=== PATIENT | male | born 1935 | race Hispanic/Latino ===

== ENCOUNTER 2016-08-29 09:15 | Outpatient (CLI) | payer MEDICARE ==
[2016-08-29 09:59] LABS: Hematocrit 32.1 % (35.5-45.6); Hemoglobin 10.6 gm/dl (11.8-15.2); Mean Corpuscular HGB Conc 33 % (32-34); Mean Corpuscular Hemoglobin 31 pg (28-32); Mean Corpuscular Volume 94 fl (84-94); Platelet Count 205 K/mm3 (140-440); Red Blood Count 3.43 M/mm3 (3.65-5.03); Red Cell Distribution Width 15.6 % (13.2-15.2); White Blood Count 7.6 K/mm3 (4.5-11.0)
[2016-08-29 10:12] LABS: Albumin 3.7 g/dL (3.9-5); Bilirubin,Total 0.3 mg/dL (0.1-1.2); Calcium 8.9 mg/dL (8.4-10.2); Chloride 103.2 mmol/L (98-107); Potassium 5.6 mmol/L (3.6-5.0); Total Protein 7.5 g/dL (6.3-8.2)
== END 2016-08-29 09:16 | disposition home or self-care (01) ==
LOC: LAB 09:15
DX: J44.9 Chronic obstructive pulmonary disease, unspecified (principal); R94.4 Abnormal results of kidney function studies; D63.1 Anemia in chronic kidney disease; E87.5 Hyperkalemia; E88.09 Other disorders of plasma-protein metabolism, not elsewhere classified; R82.99 Other abnormal findings in urine
CPT/HCPCS: 36415; 80053; 83970; 85027

== ENCOUNTER 2016-09-10 11:13 | Outpatient (CLI) | payer MEDICARE ==
[2016-09-10 11:44] LABS: BUN/Creatinine Ratio 16.5; Chloride 104.6 mmol/L (98-107); Potassium 5.1 mmol/L (3.6-5.0)
== END 2016-09-10 11:14 | disposition home or self-care (01) ==
LOC: LAB 11:13
PROVIDERS: ATTEND Internal Medicine Nephrology
DX: I12.9 Hypertensive chronic kidney disease with stage 1 through stage 4 chronic kidney disease, or unspecified chronic kidney disease (principal); N18.3 Chronic kidney disease, stage 3 (moderate); D63.1 Anemia in chronic kidney disease; N25.81 Secondary hyperparathyroidism of renal origin; E87.5 Hyperkalemia; R80.9 Proteinuria, unspecified; E55.9 Vitamin D deficiency, unspecified; R60.9 Edema, unspecified
CPT/HCPCS: 36415; 80048

== ENCOUNTER 2016-12-18 10:48 | Outpatient (CLI) | payer MEDICARE ==
[2016-12-18 11:32] LABS: Calcium 8.8 mg/dL (8.4-10.2); Chloride 105.1 mmol/L (98-107); Potassium 4.4 mmol/L (3.6-5.0)
[2016-12-18] MEDS ORDERED: NACL ONE (11:47)
--- NOTE | 2016-12-18 13:36 | Cat Scan Report ---
CT CHEST WITH CONTRAST: HISTORY: Lung mass. TECHNIQUE: Helical CT following IV contrast. Sagittal and coronal reformatted images. FINDINGS: Moderate emphysematous changes are present bilaterally. There are multiple blebs and bulla in the anterior upper lobes. A spiculated mass in the right lower lobe measures 3.3 x 2.2 cm. No evidence for infiltrate, pleural effusion or pneumothorax. Heart and mediastinal structures are within normal limits. No thoracic adenopathy is detected. The bony structures are intact. No fracture or suspicious bony lesion. IMPRESSION: Emphysematous changes. Suspicious right lower lobe mass measuring 3.3 x 3.2 cm. Primary lung neoplasm cannot be excluded. This lesion should be accessible for CT-guided biopsy is needed.
== END 2016-12-18 10:49 | disposition home or self-care (01) ==
LOC: CT 10:48
PROVIDERS: ATTEND Internal Medicine
DX: R91.8 Other nonspecific abnormal finding of lung field (principal)
CPT/HCPCS: 36415; 71260; 80048; Q9967

== ENCOUNTER 2017-01-06 09:27 | Outpatient (CLI) | payer MEDICARE ==
[2017-01-06 09:53] LABS: Hematocrit 29.9 % (35.5-45.6); Hemoglobin 10.1 gm/dl (11.8-15.2)
[2017-01-06 10:17] LABS: Albumin 3.6 g/dL (3.9-5); BUN/Creatinine Ratio 15.29; Calcium 8.8 mg/dL (8.4-10.2); Chloride 101.9 mmol/L (98-107); Phosphorous 2.5 mg/dL (2.5-4.5); Potassium 4.5 mmol/L (3.6-5.0)
== END 2017-01-06 09:28 | disposition home or self-care (01) ==
LOC: LAB 09:27
PROVIDERS: ATTEND Internal Medicine Nephrology
DX: N18.3 Chronic kidney disease, stage 3 (moderate) (principal); I12.9 Hypertensive chronic kidney disease with stage 1 through stage 4 chronic kidney disease, or unspecified chronic kidney disease; N25.81 Secondary hyperparathyroidism of renal origin; E44.0 Moderate protein-calorie malnutrition; E55.9 Vitamin D deficiency, unspecified; R80.9 Proteinuria, unspecified; R31.9 Hematuria, unspecified; D63.1 Anemia in chronic kidney disease
CPT/HCPCS: 36415; 80048; 82040; 83970; 84100; 85014; 85018

== ENCOUNTER 2017-01-22 08:06 | Day surgery (SDC) | payer MEDICARE ==
[2017-01-22 09:34] LABS: Hematocrit 31.4 % (35.5-45.6); Hemoglobin 10.5 gm/dl (11.8-15.2); Mean Corpuscular HGB Conc 33 % (32-34); Mean Corpuscular Hemoglobin 31 pg (28-32); Mean Corpuscular Volume 93 fl (84-94); Platelet Count 219 K/mm3 (140-440); Red Blood Count 3.38 M/mm3 (3.65-5.03); Red Cell Distribution Width 15.5 % (13.2-15.2); White Blood Count 14.6 K/mm3 (4.5-11.0)
[2017-01-22 10:12] LABS: INR 1.08 (0.87-1.13)
[2017-01-22 11:12] LABS: Basophils % (Manual) 0 % (0.0-1.8); Blastocytes % (Manual) 0 %; Diff Status Complete; Eosinophils % (Manual) 0 % (0.0-4.3); RBC Morphology Normal
[2017-01-22] MEDS ORDERED: SUBLIMAZE ONE (11:46)
[2017-01-22] MEDS ORDERED: VERSED IV ONE ×2 (11:46→11:55)
[2017-01-22] MEDS ORDERED: SUBLIMAZE IV ONE (11:55)
--- NOTE | 2017-01-22 13:16 | Short Stay Summary ---
Short Stay Documentation Date of service: 01/22/17 - History Principal diagnosis: Lung mass - Allergies and Medications Current Medications: Allergies Sulfa (Sulfonamide Antibiotics) Allergy (Unverified 09/15/13 10:50) Itching Home Medications Medication Instructions Recorded Confirmed Last Taken Type Albuterol Sulfate [Ventolin HFA] 2 puff IH Q4H PRN 01/22/17 01/22/17 01/22/17 05 :00 History Calcitriol [Calcitriol] 0.25 mg PO DAILY 01/22/17 01/22/17 01/21/17 History Fluticasone/Salmeterol [Advair 1 puff IH BID 01/22/17 01/22/17 01/21/17 History Diskus 500-50 mcg] Furosemide [Furosemide] 40 mg PO Q48H 01/22/17 01/22/17 01/21/17 History Levothyroxine [Synthroid] 50 mcg PO QAM 01/22/17 01/22/17 01/21/17 History Omeprazole [Omeprazole] 40 mg PO QAM 01/22/17 01/22/17 01/21/17 History Tamsulosin HCl [Tamsulosin HCl] 0.4 mg PO DAILY 01/22/17 01/22/17 01/21/17 History Tiotropium [Spiriva] 18 mcg IH QDAY 01/22/17 01/22/17 01/21/17 History - Physical exam General appearance: no acute distress - Brief post op/procedure progress note Date of procedure: 01/22/17 Pre-op diagnosis: Lung mass Post-op diagnosis: same Anesthesia: local Surgeon: MARIANA DOMINIQUE Estimated blood loss: none Specimen disposition: to lab Condition: stable - Disposition Condition at discharge: Good Short Stay Discharge Plan Follow up with: VIANEY ANDREWS MD [Primary Care Provider] - 7 Days
--- NOTE | 2017-01-22 14:15 | Cat Scan Report ---
CT-guided biopsy of right lung mass. Procedure: The patient's skin surface overlying the right lateral thorax was prepped and draped using sterile technique. Local anesthetic was injected into the skin. Using CT guidance, a 19-gauge sheath needle was advanced into the soft tissue mass in the right lower lobe. 3 passes were made using 20-gauge biopsy gun. Adequate tissue was obtained and initial touch prep slides demonstrated malignant cells. Intravenous conscious sedation was used. Intra-service time was 30 minutes. Independent cardiorespiratory monitoring was performed by the outpatient procedure nurse for 30 minutes, supervised by me. The patient tolerated the procedure well clinically and was sent to the outpatient procedure unit for further observation and a followup expiratory chest x-ray.
[2017-01-22 14:53] VITALS: BP 134/46
--- NOTE | 2017-01-22 15:05 | XRay Report ---
AP expiratory chest x-ray. History: Status post biopsy of right lung mass. Findings: There is no evidence of pneumothorax status post biopsy of right lung mass. The mass in the right lower lobe is again noted. No acute findings are seen.
== END 2017-01-22 15:30 | disposition home or self-care (01) ==
LOC: OPU 08:06 → EDSTATUS 08:30 → OPU 15:30
PROVIDERS: ATTEND Internal Medicine
DX: C34.31 Malignant neoplasm of lower lobe, right bronchus or lung (principal); J44.9 Chronic obstructive pulmonary disease, unspecified; K21.9 Gastro-esophageal reflux disease without esophagitis; Z88.2 Allergy status to sulfonamides; Z79.01 Long term (current) use of anticoagulants
CPT/HCPCS: 32405; 36415; 71010; 77012; 85007; 85025; 85610; 88305; 88333; 88334; 88341; 88342; J2250; J3010

== ENCOUNTER 2017-06-03 09:51 | Outpatient (CLI) | payer MEDICARE ==
[2017-06-03 10:44] LABS: Albumin 3.2 g/dL (3.9-5); Calcium 8.8 mg/dL (8.4-10.2); Chloride 103.9 mmol/L (98-107); Phosphorous 3.2 mg/dL (2.5-4.5); Potassium 5.5 mmol/L (3.6-5.0); Uric Acid 8.6 mg/dL (3.5-7.6)
== END 2017-06-03 09:52 | disposition home or self-care (01) ==
LOC: LAB 09:51
PROVIDERS: ATTEND Internal Medicine Nephrology
DX: I12.9 Hypertensive chronic kidney disease with stage 1 through stage 4 chronic kidney disease, or unspecified chronic kidney disease (principal); N18.3 Chronic kidney disease, stage 3 (moderate); D63.1 Anemia in chronic kidney disease; N25.81 Secondary hyperparathyroidism of renal origin; E44.0 Moderate protein-calorie malnutrition; R60.9 Edema, unspecified; E55.9 Vitamin D deficiency, unspecified; R80.9 Proteinuria, unspecified; R31.9 Hematuria, unspecified
CPT/HCPCS: 36415; 80048; 82040; 82570; 83970; 84100; 84156; 84550

== ENCOUNTER 2017-06-20 12:54 | Inpatient (IN) | payer MEDICARE ==
[2017-06-20 13:42] LABS: Basophils % (Auto) 0.4 % (0.0-1.8); Hematocrit 28.6 % (35.5-45.6); Hemoglobin 9.5 gm/dl (11.8-15.2); Mean Corpuscular HGB Conc 33 % (32-34); Mean Corpuscular Hemoglobin 31 pg (28-32); Mean Corpuscular Volume 94 fl (84-94); Platelet Count 221 K/mm3 (140-440); Red Blood Count 3.03 M/mm3 (3.65-5.03); Red Cell Distribution Width 17.5 % (13.2-15.2); White Blood Count 6.5 K/mm3 (4.5-11.0)
[2017-06-20 13:52] LABS: INR 1.4 (0.87-1.13)
[2017-06-20 13:53] LABS: Partial Thromboplastin Time 40.5 Sec. (24.2-36.6)
[2017-06-20 14:05] LABS: Calcium 8.9 mg/dL (8.4-10.2); Chloride 103.6 mmol/L (98-107); Potassium 5.1 mmol/L (3.6-5.0)
--- NOTE | 2017-06-20 14:43 | XRay Report ---
FINAL REPORT PROCEDURE: XR CHEST ROUTINE 2V TECHNIQUE: PA and lateral views of the chest are submitted. HISTORY: Shortness of breath COMPARISON: None FINDINGS: The trachea is midline. The heart is normal in size. Right worse than left apical pleural thickening is present as well as increased interstitial markings suggestive of COPD. Asymmetrical opacity of the lateral right midlung 4.4 x 1.8 centimeters is present. There is no evident pneumothorax or pleural fluid. No acute osseous abnormality is present. IMPRESSION: 4.4 x 1.8 centimeter asymmetrical opacity within the lateral mid right lung possibly a scar. Spiculated mass is not excluded superimposed upon changes of COPD. Contrast-enhanced CT of the chest would be of benefit for further evaluation.
--- NOTE | 2017-06-20 16:07 | Emergency Department Report ---
ED General Adult HPI - General Chief complaint: Dyspnea/Respdistress Stated complaint: EDMUNDO Time Seen by Provider: 06/20/17 16:04 Source: patient, family Mode of arrival: Wheelchair Limitations: Physical Limitation - History of Present Illness Initial comments: The patient is report intermittent shortness of breath. The patient is on home O2. He states his shortness of breath is worse on exertion. He has been seen by his business analytics specialist was prescribed azithromycin. He went to his family physician's office who recommended an emergency department evaluation and possible hospitalization. The patient does not complain of chest pain pressure or tightness. He is on health class. 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 He is status post XRT for his stage IV lung cancer. He is not currently on chemotherapy. He reports no fever or chills. He has not been coughing. He has had sinus drainage. He does not complain of any acute diaphoresis nausea or vomiting. He's had no leg pain or swelling. He is compliant with his medications. -: week(s) Severity scale (0 -10): 0 Associated Symptoms: denies other symptoms - Related Data Home Medications Medication Instructions Recorded Confirmed Last Taken Albuterol Sulfate [Ventolin HFA] 2 puff IH Q4H PRN 01/22/17 06/20/17 06/20/17 Calcitriol [Calcitriol] 0.25 mg PO DAILY 01/22/17 06/20/17 06/19/17 Fluticasone/Salmeterol [Advair 1 puff IH BID 01/22/17 06/20/17 06/20/17 Diskus 500-50 mcg] Furosemide [Furosemide] 40 mg PO Q48H 01/22/17 06/20/17 06/19/17 Levothyroxine [Synthroid] 50 mcg PO QAM 01/22/17 06/20/17 06/20/17 Omeprazole [Omeprazole] 40 mg PO QAM 01/22/17 06/20/17 06/20/17 Tamsulosin HCl [Tamsulosin HCl] 0.4 mg PO DAILY 01/22/17 06/20/17 06/20/17 Tiotropium [Spiriva] 18 mcg IH QDAY 01/22/17 06/20/17 06/20/17 Apixaban [Eliquis] 5 mg PO BID 06/20/17 06/20/17 06/20/17 Clindamycin [Clindamycin CAP] 600 mg PO TID 06/20/17 06/20/17 06/20/17 Metoprolol [Lopressor] 12.5 mg PO BID 06/20/17 06/20/17 06/20/17 Allergies Allergy/AdvReac Type Severity Reaction Status Date / Time Sulfa (Sulfonamide Allergy Itching Unverified 09/15/13 10:50 Antibiotics) ED Review of Systems ROS: Stated complaint: EDMUNDO Other details as noted in HPI Constitutional: denies: chills, fever Eyes: denies: eye pain, eye discharge, vision change ENT: denies: ear pain, throat pain Respiratory: shortness of breath. denies: cough, wheezing Cardiovascular: denies: chest pain, palpitations Endocrine: no symptoms reported Gastrointestinal: denies: abdominal pain, nausea, diarrhea Genitourinary: denies: urgency, dysuria Musculoskeletal: denies: back pain, joint swelling, arthralgia Skin: denies: rash, lesions Neurological: denies: headache, weakness, paresthesias Psychiatric: denies: anxiety, depression Hematological/Lymphatic: denies: easy bleeding, easy bruising ED Past Medical Hx - Past Medical History Previous Medical History?: Yes Hx Hypertension: Yes Hx Heart Attack/AMI: No (no known coronary artery disease) Hx Diabetes: No Hx Pulmonary Embolism: Yes Hx GERD: Yes Hx Arthritis: Yes Hx COPD: Yes (3.5 liters Oxygen) Hx HIV: No Additional medical history: hypothyroidism,enlarged prostate - Surgical History Past Surgical History?: Yes Additional Surgical History: colon blockage 2007,colostomy reversal in 2008 - Social History Smoking Status: Former Smoker Substance Use Type: Prescribed - Medications Home Medications: Home Medications Medication Instructions Recorded Confirmed Last Taken Type Albuterol Sulfate [Ventolin HFA] 2 puff IH Q4H PRN 01/22/17 06/20/17 06/20/17 History Calcitriol [Calcitriol] 0.25 mg PO DAILY 01/22/17 06/20/17 06/19/17 History Fluticasone/Salmeterol [Advair 1 puff IH BID 01/22/17 06/20/17 06/20/17 History Diskus 500-50 mcg] Furosemide [Furosemide] 40 mg PO Q48H 01/22/17 06/20/17 06/19/17 History Levothyroxine [Synthroid] 50 mcg PO QAM 01/22/17 06/20/17 06/20/17 History Omeprazole [Omeprazole] 40 mg PO QAM 01/22/17 06/20/17 06/20/17 History Tamsulosin HCl [Tamsulosin HCl] 0.4 mg PO DAILY 01/22/17 06/20/17 06/20/17 History Tiotropium [Spiriva] 18 mcg IH QDAY 01/22/17 06/20/17 06/20/17 History Apixaban [Eliquis] 5 mg PO BID 06/20/17 06/20/17 06/20/17 History Clindamycin [Clindamycin CAP] 600 mg PO TID 06/20/17 06/20/17 06/20/17 History Metoprolol [Lopressor] 12.5 mg PO BID 06/20/17 06/20/17 06/20/17 History ED Physical Exam - General Limitations: Physical Limitation General appearance: cachectic (somewhat) - Head Head exam: Present: atraumatic, normocephalic - Eye Eye exam: Present: normal appearance. Absent: scleral icterus - ENT ENT exam: Present: normal exam, mucous membranes moist - Neck Neck exam: Present: normal inspection. Absent: tenderness, meningismus - Respiratory Respiratory exam: Present: rhonchi (occasional), decreased breath sounds, other (normal work of breathing). Absent: respiratory distress - Cardiovascular Cardiovascular Exam: Present: regular rate, normal rhythm. Absent: systolic murmur, diastolic murmur, rubs, gallop - GI/Abdominal GI/Abdominal exam: Present: soft, normal bowel sounds. Absent: distended, tenderness, guarding, rebound, rigid - Rectal Rectal exam: Present: deferred - Extremities Exam Extremities exam: Present: normal inspection, normal capillary refill. Absent: tenderness, calf tenderness - Back Exam Back exam: Present: normal inspection - Neurological Exam Neurological exam: Present: alert, oriented X3, CN II-XII intact. Absent: motor sensory deficit - Psychiatric Psychiatric exam: Present: normal affect, normal mood - Skin Skin exam: Present: warm, dry, intact, normal color. Absent: rash ED Course Vital Signs 06/20/17 06/20/17 06/20/17 13:13 16:00 16:02 Temperature 98.2 F 97.7 F Pulse Rate 91 H 98 H Respiratory 18 18 18 Rate Blood Pressure 158/61 Blood Pressure 158/62 [Right] O2 Sat by Pulse 92 97 97 Oximetry - Reevaluation(s) Reevaluation #1: A VQ scan of the lung was ordered. The patient does not have any prior troponins for comparison. This troponin is elevated. Therefore he will be admitted for further diagnostic evaluation of his elevated troponin and unexplained shortness of breath. 06/20/17 16:29 ED Medical Decision Making - Lab Data Result diagrams: 06/20/17 13:24 06/20/17 13:24 Laboratory Results - last 24 hr 06/20/17 06/20/17 06/20/17 13:24 13:24 13:24 WBC 6.5 RBC 3.03 L Hgb 9.5 L Hct 28.6 L MCV 94 MCH 31 MCHC 33 RDW 17.5 H Plt Count 221 Lymph % (Auto) 8.7 L [place] % (Auto) 12.6 H Eos % (Auto) 4.0 Baso % (Auto) 0.4 Lymph # 0.6 L [place] # 0.8 Eos # 0.3 Baso # 0.0 Seg Neutrophils % 74.3 H Seg Neutrophils # 4.8 PT 17.9 H INR 1.40 H APTT 40.5 H Sodium 141 Potassium 5.1 H Chloride 103.6 Carbon Dioxide 23 Anion Gap 20 BUN 39 H Creatinine 1.8 H Estimated GFR 36 BUN/Creatinine Ratio 22 Glucose 105 H Calcium 8.9 Troponin T 0.077 H Triglycerides 80 Cholesterol 96 LDL Cholesterol Direct 41 L HDL Cholesterol 39 L Cholesterol/HDL Ratio 2.46 - EKG Data -: EKG Interpreted by Me EKG shows normal: sinus rhythm, axis, intervals, QRS complexes, ST-T waves Rate: normal - EKG Data Interpretation: no acute changes - Radiology Data Radiology results: report reviewed interpreted by me: Chest x-ray does not reveal any acute process. The patient has chronic lung disease and a significant right apical Looked at his prior chest x-rays and they look somewhat similar. He does have right mid field scarring. Critical care attestation.: If time is entered above; I have spent that time in minutes in the direct care of this critically ill patient, excluding procedure time. ED Disposition Clinical Impression: Elevated troponin, Hyperkalemia, Renal insufficiency Dyspnea Qualifiers: Dyspnea type: unspecified Qualified Code(s): R06.00 - Dyspnea, unspecified Anemia Qualifiers: Anemia type: unspecified type Qualified Code(s): D64.9 - Anemia, unspecified Stage IV squamous cell carcinoma of lung Qualifiers: Laterality: unspecified laterality Qualified Code(s): C34.90 - Malignant neoplasm of unspecified part of unspecified bronchus or lung Disposition: OP ADMIT IP TO THIS HOSP Is pt being admited?: Yes Does the pt Need Aspirin: Yes Condition: Stable Referrals: PRIMARY CARE, [Primary Care Provider] - 3-5 Days Time of Disposition: 16:32
[2017-06-20] MEDS ORDERED: BABY ASPIRIN PO ONE (16:32)
--- NOTE | 2017-06-20 18:29 | History and Physical Report ---
History of Present Illness Chief complaint: I cant breathe History of present illness: 81 YO Male with Lung Cancer, Chronic Respiratory Failure on Home oxygen, PE on Anticoagulation, HTN, COPD, OA, GERD, BPH, Hypothyroidism presents to ED for evaluation. Pt provides limited history. Pt and daughter at bedside and provide additional history. Pt states that he has experienced shortness of breath over the past 2-3 weeks, with worsening symptoms over the past 3 days. Pt acknowledges that patient has decreased oral intake, and has become more weak and more agitated. PT was recent seen by his Sample Wrapper and was treated with oral antibiotics without improvement. Pt subsequently seen by his PCP and was instructed to present to [facility] for evaluation. Pt states that he has dypsnea at rest and can only walk about 8 feet. Pt denies fever, chills, CP, Palpitations, NVD, Syncope, Trauma, Falls,BRBPR, Hemoptysis, Productive cough, Medication Noncompliance, or recent ill contacts. Pt seen and evaluated in ED and found to be in respiratory distress. Past History Past Medical History: arthritis, cancer, COPD, GERD, hypertension, hypothyroidism Past Surgical History: Other (colostomy) Social history: , lives with family. denies: smoking, alcohol abuse, prescription drug abuse, IV drug use Family history: hypertension Medications and Allergies Allergies Allergy/AdvReac Type Severity Reaction Status Date / Time Sulfa (Sulfonamide Allergy Itching Unverified 09/15/13 10:50 Antibiotics) Home Medications Medication Instructions Recorded Confirmed Last Taken Type Albuterol Sulfate [Ventolin HFA] 2 puff IH Q4H PRN 01/22/17 06/20/17 06/20/17 History Calcitriol [Calcitriol] 0.25 mg PO DAILY 01/22/17 06/20/17 06/19/17 History Fluticasone/Salmeterol [Advair 1 puff IH BID 01/22/17 06/20/17 06/20/17 History Diskus 500-50 mcg] Furosemide [Furosemide] 40 mg PO Q48H 01/22/17 06/20/17 06/19/17 History Levothyroxine [Synthroid] 50 mcg PO QAM 01/22/17 06/20/17 06/20/17 History Omeprazole [Omeprazole] 40 mg PO QAM 01/22/17 06/20/17 06/20/17 History Tamsulosin HCl [Tamsulosin HCl] 0.4 mg PO DAILY 01/22/17 06/20/17 06/20/17 History Tiotropium [Spiriva] 18 mcg IH QDAY 01/22/17 06/20/17 06/20/17 History Apixaban [Eliquis] 5 mg PO BID 06/20/17 06/20/17 06/20/17 History Clindamycin [Clindamycin CAP] 600 mg PO TID 06/20/17 06/20/17 06/20/17 History Metoprolol [Lopressor] 12.5 mg PO BID 06/20/17 06/20/17 06/20/17 History Review of Systems Constitutional: fatigue, weakness, no weight loss, no weight gain, no fever, no chills Ears, nose, mouth and throat: no ear pain, no ear discharge, no tinnitis, no decreased hearing, no nose pain, no nasal congestion Cardiovascular: shortness of breath, no chest pain, no orthopnea, no palpitations Respiratory: shortness of breath, no cough, no cough with sputum, no excessive sputum, no hemoptysis Gastrointestinal: no nausea, no vomiting, no diarrhea, no constipation, no change in bowel habits Genitourinary Male: no dysuria, no hematuria, no flank pain, no discharge Rectal: no pain, no incontinence, no bleeding Musculoskeletal: no neck stiffness, no neck pain, no shooting arm pain, no arm numbness/tingling, no low back pain Integumentary: no rash, no pruritis, no redness, no sores, no wounds, no jaundice Neurological: weakness, no head injury, no transient paralysis, no paralysis, no seizures, no syncope, no tremors Psychiatric: no anxiety, no memory loss, no change in sleep habits, no sleep disturbances, no insomnia, no hypersomnia Endocrine: no cold intolerance, no heat intolerance, no polyphagia, no excessive thirst, no polydipsia, no polyuria Hematologic/Lymphatic: no easy bruising, no easy bleeding Allergic/Immunologic: no urticaria, no allergic rhinitis, no wheezing Exam - Constitutional Vitals: Temp Pulse Resp BP Pulse Ox 97.7 F 98 H 18 158/62 97 06/20/17 16:00 06/20/17 16:00 06/20/17 16:02 06/20/17 16:00 06/20/17 16:02 General appearance: Present: mild distress, cachectic - EENT Eyes: Present: PERRL ENT: hearing intact, clear oral mucosa - Neck Neck: Present: supple, normal ROM - Respiratory Respiratory effort: normal Respiratory: right: diminished - Cardiovascular Heart Sounds: Present: S1 & S2. Absent: rub, click - Extremities Extremities: pulses symmetrical, No edema Peripheral Pulses: within normal limits - Abdominal General gastrointestinal: Present: soft, non-tender, non-distended, normal bowel sounds Male genitourinary: Present: normal - Integumentary Integumentary: Present: clear, warm, dry - Musculoskeletal Musculoskeletal: generalized weakness - Psychiatric Psychiatric: appropriate mood/affect, intact judgment & insight - Neurologic Neurologic: CNII-XII intact, moves all extremities Results - Labs CBC & Chem 7: 06/20/17 13:24 06/20/17 13:24 Labs: Abnormal lab results 06/20/17 06/20/17 06/20/17 Range/Units 13:24 13:24 13:24 RBC 3.03 L (3.65-5.03) M/mm3 Hgb 9.5 L (11.8-15.2) gm/dl Hct 28.6 L (35.5-45.6) % RDW 17.5 H (13.2-15.2) % Lymph % (Auto) 8.7 L (13.4-35.0) % [place] % (Auto) 12.6 H (0.0-7.3) % Lymph # 0.6 L (1.2-5.4) K/mm3 Seg Neutrophils % 74.3 H (40.0-70.0) % PT 17.9 H (12.2-14.9) Sec. INR 1.40 H (0.87-1.13) APTT 40.5 H (24.2-36.6) Sec. Potassium 5.1 H (3.6-5.0) mmol/L BUN 39 H (9-20) mg/dL Creatinine 1.8 H (0.8-1.5) mg/dL Glucose 105 H (75-100) mg/dL Troponin T 0.077 H (0.00-0.029) ng/mL LDL Cholesterol Direct 41 L (50-130) mg/dL HDL Cholesterol 39 L (40-59) mg/dL Assessment and Plan - Patient Problems (1) Lung cancer, upper lobe Current Visit: Yes Status: Acute Qualifiers: Laterality: right Qualified Code(s): C34.11 - Malignant neoplasm of upper lobe, right bronchus or lung Plan to address problem: Pulmonary consulted, empiric abx, Discussed patient prognosis. Suspect patient symptoms largely to systemic effects of lung malignancy as well as decreased oral intake. Supportive care. supplemental oxygen, (2) ARF (acute renal failure) Current Visit: Yes Status: Acute Qualifiers: Acute renal failure type: with acute tubular necrosis Qualified Code(s): N17.0 - Acute kidney failure with tubular necrosis Plan to address problem: IVF resuscitation, monitor uop q shift, encourage free water intake, (3) Acute and chronic respiratory failure Current Visit: Yes Status: Acute Qualifiers: Respiratory failure complication: hypoxia Qualified Code(s): J96.21 - Acute and chronic respiratory failure with hypoxia Plan to address problem: Seconday to Lung Neoplasm: Supplemental oxygen,nebs, aspiration precautions, supportive care. (4) Anemia of chronic disease Current Visit: Yes Status: Acute Plan to address problem: No transfusion at this time, continue to monitor, repeat cbc, serial physical exam. (5) Malnutrition Current Visit: Yes Status: Acute Qualifiers: Malnutrition type: M Protein-calorie malnutrition severity: P Plan to address problem: Moderate-Severe malnutrition: Encourage oral intake, increased protein intake (6) DVT prophylaxis Current Visit: Yes Status: Acute
[2017-06-20] MEDS ORDERED: TYLENOL PO PRN (18:30)
[2017-06-20] MEDS ORDERED: PROVENTIL IH PRN (18:30)
[2017-06-20] MEDS ORDERED: ZOFRAN IV PRN (18:30)
[2017-06-20] MEDS ORDERED: PROAIR IH PRN (18:33)
--- NOTE | 2017-06-20 18:52 | Nuclear Medicine Report ---
FINAL REPORT EXAM: NM LUNG SCAN PERF/VENT HISTORY: EDMUNDO h/o PE TECHNIQUE: Lung ventilation with 15.0 mCi of xenon-133 gas Lung perfusion with 5.0 mCi of IV technetium 99m MAA Standard multiple planar ventilation and perfusion lung images PRIORS: None available. FINDINGS: Examination limited by image demographics partly obscuring 2 of the 8 perfusion images. Homogeneous diffuse uptake is noted on ventilation images throughout both lungs. On perfusion imaging, there is relatively symmetric patchy decreased activity in both upper lobes. Given relatively symmetric findings, this may reflect artifact of soft tissue attenuation or physiologic hypoperfusion in both upper lobes. The differential, however, includes upper lobe PE bilaterally since there is no matching ventilation defect. IMPRESSION: Bilateral relatively symmetric patchy perfusion defect in both upper lobes is suggestive of soft tissue attenuation artifact or may reflect physiologic hypoperfusion, given symmetry. The differential includes bilateral upper lobe PE since there is no matching ventilation defect. Consider followup chest CTA, if IV contrast can be given, to further characterize, in the appropriate clinical setting
[2017-06-20] MEDS ORDERED: LASIX PO SCH (19:00)
[2017-06-20] MEDS: BROVANA NEBU IH SCH (20:21)
[2017-06-20] MEDS: PULMICORT IH SCH (20:21)
[2017-06-20] MEDS ORDERED: NON-FORMULARY (Fluticasone/Salmeterol [Advair Diskus 500-50 Mcg] 1 PUFF) IH SCH (22:00)
[2017-06-20] MEDS: LOPRESSOR PO SCH (22:03)
[2017-06-20] MEDS: PEPCID PO SCH (22:03)
[2017-06-20] MEDS: ELIQUIS PO SCH (22:03)
[2017-06-20] MEDS: NACL 0.45% 500 ML IV SCH (22:07)
[2017-06-21] MEDS: SYNTHROID PO SCH (06:23)
[2017-06-21] MEDS ORDERED: LEVAQUIN 500MG/100ML 500 MG/100 ML BAG IV SCH (07:00)
[2017-06-21] MEDS: ROCALTROL PO SCH (09:03)
[2017-06-21] MEDS: FLOMAX PO SCH (09:04)
[2017-06-21] MEDS: LOPRESSOR PO SCH ×2 (09:04→21:25)
[2017-06-21] MEDS: PEPCID PO SCH ×2 (09:04→21:29)
[2017-06-21] MEDS: ELIQUIS PO SCH ×2 (09:59→21:25)
[2017-06-21] MEDS: SPIRIVA IH SCH (10:03)
[2017-06-21] MEDS: BROVANA NEBU IH SCH ×2 (10:04→20:20)
[2017-06-21] MEDS: PULMICORT IH SCH ×2 (10:05→20:20)
[2017-06-21 13:09] LABS: Calcium 8.3 mg/dL (8.4-10.2); Chloride 102.3 mmol/L (98-107); Potassium 4.8 mmol/L (3.6-5.0)
--- NOTE | 2017-06-21 16:07 | Consultation ---
History of Present Illness Consult date: 06/21/17 Requesting physician: PETE BARRAGAN Reason for consult: other (Lung Cancer) History of present illness: PULMONARY/CCM CONSULT NOTE (Full dictation # [id number]) Please see dictated notes for full details Past History Past Medical History: arthritis, cancer, COPD, GERD, hypertension, hypothyroidism Past Surgical History: Other (colostomy) Social history: , lives with family. denies: smoking, alcohol abuse, prescription drug abuse, IV drug use Family history: hypertension Medications and Allergies Allergies Allergy/AdvReac Type Severity Reaction Status Date / Time Sulfa (Sulfonamide Allergy Itching Unverified 09/15/13 10:50 Antibiotics) Home Medications Medication Instructions Recorded Confirmed Last Taken Type Albuterol Sulfate [Ventolin HFA] 2 puff IH Q4H PRN 01/22/17 06/20/17 06/20/17 History Calcitriol [Calcitriol] 0.25 mg PO DAILY 01/22/17 06/20/17 06/19/17 History Fluticasone/Salmeterol [Advair 1 puff IH BID 01/22/17 06/20/17 06/20/17 History Diskus 500-50 mcg] Furosemide [Furosemide] 40 mg PO Q48H 01/22/17 06/20/17 06/19/17 History Levothyroxine [Synthroid] 50 mcg PO QAM 01/22/17 06/20/17 06/20/17 History Omeprazole [Omeprazole] 40 mg PO QAM 01/22/17 06/20/17 06/20/17 History Tamsulosin HCl [Tamsulosin HCl] 0.4 mg PO DAILY 01/22/17 06/20/17 06/20/17 History Tiotropium [Spiriva] 18 mcg IH QDAY 01/22/17 06/20/17 06/20/17 History Apixaban [Eliquis] 5 mg PO BID 06/20/17 06/20/17 06/20/17 History Clindamycin [Clindamycin CAP] 600 mg PO TID 06/20/17 06/20/17 06/20/17 History Metoprolol [Lopressor] 12.5 mg PO BID 06/20/17 06/20/17 06/20/17 History Active Meds: Active Medications Acetaminophen (Tylenol) 650 mg PO Q4H PRN PRN Reason: Pain MILD(1-3)/Fever >100.5/MAXWELL Albuterol (Proventil) 2.5 mg IH Q4H PRN PRN Reason: Shortness Of Breath Last Admin: 06/20/17 20:50 Dose: 2.5 mg Apixaban (Eliquis) 5 mg PO BID JUDIE PRN Reason: Protocol Last Admin: 06/21/17 09:59 Dose: 5 mg Arformoterol Tartrate (Brovana Nebu) 15 mcg IH Q12HRT [facility] Last Admin: 06/21/17 10:04 Dose: 15 mcg Budesonide (Pulmicort) 0.5 mg IH Q12HRT [facility] Last Admin: 06/21/17 10:05 Dose: 0.5 mg Calcitriol (Rocaltrol) 0.25 mcg PO DAILY [facility] Last Admin: 06/21/17 09:03 Dose: 0.25 mcg Famotidine (Pepcid) 20 mg PO BID [facility] Last Admin: 06/21/17 09:04 Dose: 20 mg Furosemide (Lasix) 40 mg PO Q48H [facility] Last Admin: 06/20/17 19:58 Dose: 40 mg Sodium Chloride (Nacl 0.45%) 500 mls @ 50 mls/hr IV DIRECT [facility] Last Admin: 06/20/17 22:07 Dose: 50 mls/hr Levofloxacin/Dextrose (Levaquin 500mg/100ml) 500 mg in 100 mls @ 100 mls/hr IV Q48H JUDIE PRN Reason: Protocol Stop: 06/23/17 23:59 Last Admin: 06/21/17 07:01 Dose: 100 mls/hr Levothyroxine Sodium (Synthroid) 50 mcg PO QAM@0600 [facility] Last Admin: 06/21/17 06:23 Dose: 50 mcg Metoprolol Tartrate (Lopressor) 12.5 mg PO BID [facility] Last Admin: 06/21/17 09:04 Dose: 12.5 mg Ondansetron HCl (Zofran) 4 mg IV Q8H PRN PRN Reason: N/V unrelieved by Heather Tamsulosin HCl (Flomax) 0.4 mg PO DAILY [facility] Last Admin: 06/21/17 09:04 Dose: 0.4 mg Tiotropium [place] (Spiriva) 1 puff IH Q24HR [facility] Last Admin: 06/21/17 10:03 Dose: 1 puff Physical Examination Vital signs: Vital Signs Pulse Pulse Ox 86 95 06/20/17 13:12 06/20/17 13:12 Results - Laboratory Findings CBC and BMP: 06/20/17 13:24 06/21/17 12:32 PT/INR, D-dimer PT 17.9 Sec. (12.2-14.9) H 06/20/17 13:24 INR 1.40 (0.87-1.13) H 06/20/17 13:24 Abnormal lab findings: Abnormal Labs 06/21/17 12:32 BUN 37 H Creatinine 1.7 H Glucose 113 H Calcium 8.3 L
[2017-06-21 17:10] LABS: Bilirubin,Urine NEG (Negative); Blood,Urine SM (Negative); Ketones,Urine NEG (Negative); Leukocyte Esterase,Urine LG (Negative); Mucus,Urine FEW /HPF; Nitrite,Urine NEG (Negative); Protein,Urine <15 mg/dL mg/dL (Negative); Urobilinogen,Urine < 2.0 mg/dL (<2.0)
[2017-06-21] MEDS: NACL 0.45% 500 ML IV SCH (18:46)
--- NOTE | 2017-06-21 20:01 | Progress Note ---
Assessment and Plan Assessment and plan: 81 yo Male with Lung Cancer, COPD, Chronic Respiratory Failure on Home oxygen, PE on Anticoagulation, HTN, Hypothyroidism, GERD, OA, BPH, Hypothyroidism, brought to the hospital for worsening shortness of breath, decreased oral intake and progressive weakness Lung cancer RUL Recently treated with antibiotics by his pulper tender, with no improvement Symptoms likely related to progression of malignancy Supportive care, supplemental oxygen Pulmonary consulted Previously diagnosed PE Anticoagulated with Eliquis V/Q scan unequivocal Acute on chronic hypoxic respiratory failure Due to lung cancer/COPD Supplemental oxygen, supportive care Acute renal failure Likely secondary to vasomotor nephropathy Give IV fluids, encourage freewater intake Monitor closely Hyperkalemia Mild Treat medically Recheck in a.m. Anemia Likely anemia of chronic disease Monitor H&H Malnutrition Consult dietitian for supplementation DVT prophylaxis On eliquis History Interval history: feeling slightly better, eating and daughter present, updated Hospitalist Physical - Constitutional Vitals: Temp Pulse Resp BP Pulse Ox 97.7 F 81 16 120/54 97 06/21/17 13:15 06/21/17 13:15 06/21/17 13:15 06/21/17 13:15 06/21/17 13:15 General appearance: Present: no acute distress, other (frail) - EENT Eyes: Present: PERRL, EOM intact - Neck Neck: Present: supple, normal ROM. Absent: masses or JVD - Respiratory Respiratory effort: normal Respiratory: bilateral: diminished, rhonchi, negative: wheezing - Cardiovascular Rhythm: regular Heart Sounds: Present: S1 & S2. Absent: systolic murmur - Extremities Extremities: no ischemia - Abdominal General gastrointestinal: soft, non-tender, non-distended, normal bowel sounds - Psychiatric Psychiatric: cooperative - Neurologic Neurologic: CNII-XII intact, no focal deficits Results - Labs CBC & Chem 7: 06/20/17 13:24 06/21/17 12:32 Labs: Laboratory Last Values WBC 6.5 K/mm3 (4.5-11.0) 06/20/17 13:24 RBC 3.03 M/mm3 (3.65-5.03) L 06/20/17 13:24 Hgb 9.5 gm/dl (11.8-15.2) L 06/20/17 13:24 Hct 28.6 % (35.5-45.6) L 06/20/17 13:24 MCV 94 fl (84-94) 06/20/17 13:24 MCH 31 pg (28-32) 06/20/17 13:24 MCHC 33 % (32-34) 06/20/17 13:24 RDW 17.5 % (13.2-15.2) H 06/20/17 13:24 Plt Count 221 K/mm3 (140-440) 06/20/17 13:24 Lymph % (Auto) 8.7 % (13.4-35.0) L 06/20/17 13:24 [place] % (Auto) 12.6 % (0.0-7.3) H 06/20/17 13:24 Eos % (Auto) 4.0 % (0.0-4.3) 06/20/17 13:24 Baso % (Auto) 0.4 % (0.0-1.8) 06/20/17 13:24 Lymph # 0.6 K/mm3 (1.2-5.4) L 06/20/17 13:24 [place] # 0.8 K/mm3 (0.0-0.8) 06/20/17 13:24 Eos # 0.3 K/mm3 (0.0-0.4) 06/20/17 13:24 Baso # 0.0 K/mm3 (0.0-0.1) 06/20/17 13:24 Seg Neutrophils % 74.3 % (40.0-70.0) H 06/20/17 13:24 Seg Neutrophils # 4.8 K/mm3 (1.8-7.7) 06/20/17 13:24 PT 17.9 Sec. (12.2-14.9) H 06/20/17 13:24 INR 1.40 (0.87-1.13) H 06/20/17 13:24 APTT 40.5 Sec. (24.2-36.6) H 06/20/17 13:24 Sodium 139 mmol/L (137-145) 06/21/17 12:32 Potassium 4.8 mmol/L (3.6-5.0) 06/21/17 12:32 Chloride 102.3 mmol/L (98-107) 06/21/17 12:32 Carbon Dioxide 26 mmol/L (22-30) 06/21/17 12:32 Anion Gap 16 mmol/L 06/21/17 12:32 BUN 37 mg/dL (9-20) H 06/21/17 12:32 Creatinine 1.7 mg/dL (0.8-1.5) H 06/21/17 12:32 Estimated GFR 39 ml/min 06/21/17 12:32 BUN/Creatinine Ratio 22 % 06/21/17 12:32 Glucose 113 mg/dL (75-100) H 06/21/17 12:32 Calcium 8.3 mg/dL (8.4-10.2) L 06/21/17 12:32 Troponin T 0.076 ng/mL (0.00-0.029) H 06/21/17 12:32 Triglycerides 80 mg/dL (2-149) 06/20/17 13:24 Cholesterol 96 mg/dL (50-199) 06/20/17 13:24 LDL Cholesterol Direct 41 mg/dL (50-130) L 06/20/17 13:24 HDL Cholesterol 39 mg/dL (40-59) L 06/20/17 13:24 Cholesterol/HDL Ratio 2.46 % 06/20/17 13:24 TSH 2.550 mlU/mL (0.270-4.200) 06/21/17 12:32 Urine Color Yellow (Yellow) 06/21/17 16:23 Urine Turbidity Clear (Clear) 06/21/17 16:23 Urine pH 6.0 (5.0-7.0) 06/21/17 16:23 Ur Specific [place] 1.012 (1.003-1.030) 06/21/17 16:23 Urine Protein <15 mg/dl mg/dL (Negative) 06/21/17 16:23 Urine Glucose (UA) Neg mg/dL (Negative) 06/21/17 16:23 Urine Ketones Neg mg/dL (Negative) 06/21/17 16:23 Urine Blood Sm (Negative) 06/21/17 16:23 Urine Nitrite Neg (Negative) 06/21/17 16:23 Urine Bilirubin Neg (Negative) 06/21/17 16:23 Urine Urobilinogen < 2.0 mg/dL (<2.0) 06/21/17 16:23 Ur Leukocyte Esterase Lg (Negative) 06/21/17 16:23 Urine WBC (Auto) 160.0 /HPF (0.0-6.0) H 06/21/17 16:23 Urine RBC (Auto) 3.0 /HPF (0.0-6.0) 06/21/17 16:23 Urine Mucus Few /HPF 06/21/17 16:23 - Imaging and Cardiology Imaging and Cardiology: V/Q scan - some perfusion defects bilateral upper lobes, but test
[2017-06-22] MEDS: NACL 0.9% 1000 ML 1,000 ML IV SCH ×3 (00:43→21:24)
--- NOTE | 2017-06-22 03:55 | Consultation ---
PRELIMINARY CONSULT NOTE CONSULTING PHYSICIAN: Dr. Harman. REASON FOR CONSULTATION: Lung cancer. CHIEF COMPLAINT AND HISTORY OF PRESENT ILLNESS: The patient is an 81-year-old male, clinic patient of ours with past medical history significant for diagnosis of stage IV lung cancer for which he is on radiotherapy, at this point came into the Emergency Room complaining of intermittent shortness of breath. He is really a poor historian. His mentions that he has been dealing with upper and lower respiratory tract type symptoms over the past one to two weeks. He was seen in the outpatient clinic and treated with Zithromax. Symptoms did not improve. He went back to see his primary care who started him on some clindamycin, which they said that he took about two or three doses and was unable to tolerate. He also has a prescription for Augmentin, but he states he is not taking that. His admits to sinus infections being passed around in the house. He does say he has sinusitis that initially bothered him, was better on the Zithromax. As a result of his continued constellation of symptoms, he went back to his primary care physician who asked him to call to the Emergency Room. In the Emergency Room, he was evaluated. 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 He denied nausea or vomiting. He complains of oropharyngeal dryness, but is on diuretic therapy. He denies any new leg pain or swelling either unilaterally or bilaterally or any suggestion of recurrent venous thromboembolic phenomenon. When I stopped by to see him, he was lying in bed, on supplemental oxygen 2 liters nasal cannula, mildly labored breathing, talking in full sentences, appeared more frustrated than actually physically, distressed. Now, he does have a 10+ pack year tobacco smoking history, but has quit smoking now. That is as much of the history of presentation as I have except to say he denies gross or streaky hemoptysis. Denies any acute chest pain, denies any palpitations. PAST MEDICAL HISTORY: History of hypertension, history of pulmonary embolus, history of gastroesophageal reflux disease, history of chronic obstructive lung disease, home oxygen dependent, history of arthritis, history of hypothyroidism and history of an enlarged prostate. PAST SURGICAL HISTORY: He has a history of colostomy with reversal in 2008. MEDICATIONS: He was on at the time I stopped by to see him, according to the medication administration record included the following: He is on Tylenol 650 mg p.o. q. 4 hours p.r.n. mild pain, Eliquis 5 mg p.o. b.i.d., Brovana 15 mcg and nebulized q. 12 hours, Pulmicort 0.5 mg nebulized q. 12h., Rocaltrol 0.25 mcg p.o. daily, Pepcid 20 mg p.o. b.i.d., Lasix 40 mg p.o. q. 48 hours, Levaquin 500 mg IV q. 48 hours. He is on Levoxyl 50 mcg p.o. q.a.m., Lopressor 12.5 mg p.o. b.i.d. and Spiriva inhalation 1 puff inhaled q. 24 hours. ALLERGIES: SULFA DRUGS, nature of this allergy is unknown. DIET: Well-built gentleman. Denies significant weight loss or gain preceding few weeks to months. FAMILY AND SOCIAL HISTORY: Lives in the community, 10+ pack year tobacco smoking history. No longer smokes. Denies alcohol or illicit drug use or abuse. Family history, otherwise, noncontributory. REVIEW OF SYSTEMS: Complete 13-system review of systems was obtained. Pertinent positives and/or negatives are as in the body of the history above. He also complains of feeling cold all the time. REVIEW OF SYSTEMS: Otherwise noncontributory. PHYSICAL EXAMINATION: VITAL SIGNS: At presentation in the Emergency Room, afebrile, temperature 98.2 degrees Fahrenheit, pulse of 86, respiratory rate of 18, blood pressure 158/61, oxygen sats were 95%, inspired oxygen concentration was not recorded. GENERAL: He is elderly looking, looks his stated age, alert, oriented male, I should say talking to me, at worst mildly interrupted sentences, in mild respiratory distress. HEAD, EYES, EARS, NOSE AND THROAT: He is normocephalic, atraumatic. There is mild jugular venous distention without any pulsations observable. No goiter. Oropharynx is a Mallampati #2 oropharynx. No significant posterior oropharyngeal erythema. Oropharynx is moist with mild pallor. Grossly, no palpable lymph nodes in the supraclavicular or submandibular lymph node chains. LUNGS: Auscultation of both lung baker significant for diminished bilateral breath sounds, slightly prolonged expiratory phase, inspiratory crackles at the bases. No wheezing. HEART: Heart sounds 1 and 2 are heard. They were regular in rate and rhythm at the time of my evaluation. No rubs, no murmurs. ABDOMEN: Soft. Bowel sounds are positive. Nontender, protuberant. No hepatosplenomegaly. EXTREMITIES: Without overt digital clubbing. No cyanosis, no pedal edema. Dorsalis pedis pulses are palpable bilaterally. NEUROLOGIC: Pupils are equal, round and reactive to light and accommodation. Extraocular muscle movements are intact. He moves all 4 extremities spontaneously. No fasciculations. No spasticity. No tremors. PSYCHIATRIC: He is of flat to depressed affect, good insight. Mood is; otherwise, appropriate. LABORATORY DATA: From my review are as follows: Admission white cell count 6500, hemoglobin 9.5, hematocrit 28.6, platelet count 221. INR 1.40. Serum sodium 141, potassium 5.1, chloride 104, bicarbonate 23, BUN 39, creatinine 1.8, glucose 105. Troponin 0.077. LDL cholesterol is 41. Serum potassium is down to 4.8 today. No microbiology studies. Radiographic studies have been reviewed. I have also reviewed the radiologist's interpretation. His chest x-ray essentially shows chronic looking COPD changes with some tenting of the right hemidiaphragm, increased interstitial markings bilaterally. The right mid lung zone opacification likely represents is known lung cancer. There is some apical capping that is not new. No gross pneumothorax. No gross bony fractures. A VQ scan was also done in this gentleman at presentation and was read as possible upper lobe PE due to the ventilation mismatch issues. ASSESSMENT AND PLAN: We have an elderly gentleman here with lung cancer, undergoing treatment in with really mostly nonspecific symptoms except for I would say generalized malaise. He does have anemia and nothing major. He does have acute kidney injury and may be on the dry side as he does also complain of oropharyngeal dryness and he does have slightly elevated troponins. A 12-lead EKG will be ordered and reviewed. ASSESSMENT: As follows: 1. Acute chronic obstructive pulmonary disease exacerbation with slightly increased oxygen requirements. 2. Acute kidney injury. 3. Lung cancer, undergoing treatment stage 4. 4. Adult failure to thrive. 5. Sinusitis, improved. 6. Anemia, normocytic, unlikely of chronic disease. 7. Hypothyroidism. 8. Hyperkalemia, resolved. 9. Elevated troponins, possible non-STEMI. PLAN: 1. Continue supplemental oxygen target O2 sats greater than or equal to about 92-94%. 2. Continue long and short acting bronchodilators as well as inhaled corticosteroids. 3. I will hold on systemic steroids at this point. 4. Continue empiric Levaquin monotherapy. 5. Send sputum for Gram stain, cultures and sensitivities. 6. Stop Lasix at this point, plus or minus some gentle hydration. I do feel his oropharyngeal dryness and azotemia may be related to the diuresis. 7. Continue serial cardiac enzymes, get a 12-lead EKG and address as necessary. 8. Definitely continue his Eliquis. I doubt we are seeing new PEs on treatment, likely is his known venous thromboembolic phenomenon. We will continue his Eliquis. 9. He is appropriately on GI prophylaxis for his gastroesophageal reflux disease and he is on full anticoagulation. 10. Flu and pneumonia vaccination will be per protocol. Thank you very much for the consult Dr. Harman. We will follow along. We will make further recommendations as the picture progresses/becomes clearer. Again, this is a coverage for . This elderly gentleman with chronic baseline severe COPD with an acute exacerbation, he should be watched closely as he could decompensate. He is a high complexity patient. JOB# [id number] DANNA/NICOLE
[2017-06-22 05:25] LABS: Basophils % (Auto) 0.6 % (0.0-1.8); Eosinophils % (Auto) 4.7 % (0.0-4.3); Hemoglobin 9.2 gm/dl (11.8-15.2); Mean Corpuscular HGB Conc 33 % (32-34); Mean Corpuscular Hemoglobin 31 pg (28-32); Mean Corpuscular Volume 94 fl (84-94); Platelet Count 198 K/mm3 (140-440); Red Blood Count 2.99 M/mm3 (3.65-5.03); Red Cell Distribution Width 17.3 % (13.2-15.2); White Blood Count 6.1 K/mm3 (4.5-11.0)
[2017-06-22 05:48] LABS: Calcium 8.4 mg/dL (8.4-10.2)
[2017-06-22 05:49] LABS: Chloride 103.6 mmol/L (98-107); Potassium 4.8 mmol/L (3.6-5.0)
[2017-06-22] MEDS: SYNTHROID PO SCH (05:59)
[2017-06-22] MEDS: SPIRIVA IH SCH ×2 (07:25→11:34)
[2017-06-22] MEDS: PULMICORT IH SCH ×2 (07:25→20:26)
[2017-06-22] MEDS: BROVANA NEBU IH SCH ×2 (07:25→20:25)
[2017-06-22] MEDS: PEPCID PO SCH ×2 (09:37→21:22)
[2017-06-22] MEDS: FLOMAX PO SCH (09:37)
[2017-06-22] MEDS: ROCALTROL PO SCH (09:37)
[2017-06-22] MEDS: ELIQUIS PO SCH ×2 (09:37→21:23)
[2017-06-22] MEDS: LOPRESSOR PO SCH ×2 (09:38→21:25)
--- NOTE | 2017-06-22 10:10 | Progress Note ---
Assessment and Plan /Acute on chronic hypoxic respiratory failure Due to underlying lung cancer and COPD exacerbation Supplemental oxygen, supportive care assess for home O2 requirement /Lung cancer RUL stage IV Recently treated with antibiotics by his aquatic facility manager, with no improvement Symptoms likely related to progression of malignancy Supportive care, supplemental oxygen Pulmonary following /Previously diagnosed PE Anticoagulated with Eliquis V/Q scan unequivocal /Acute renal failure Likely secondary to vasomotor nephropathy Give IV fluids, encourage freewater intake Monitor closely, Cr 1.7 today /Hyperkalemia Mild, Treated medically resolved /Anemia Likely anemia of chronic disease Monitor H&H /Malnutrition Consulted dietitian for supplementation / Hypothyroidism Continue Synthroid / Hypertension Continue beta alley, hold Lasix for acute renal failure /DVT prophylaxis On eliquis Brief history:81 yo Male with Lung Cancer, COPD, Chronic Respiratory Failure on Home oxygen, PE on Anticoagulation, HTN, Hypothyroidism, GERD, OA, BPH, Hypothyroidism, brought to the hospital for worsening shortness of breath, decreased oral intake and progressive weakness. Subjective Date of service: 06/22/17 Interval history: Patient seen and examined. Medical records and medication list reviewed. No acute event overnight noted by the RN. Patient denies any chest pain or difficulty breathing. Patient is tolerating diet. He states that his appetite has slightly improved. Updated at bedside Completed chemotherapy at the [facility] Discussed plan of care at bedside with patient. Objective - Exam Narrative Exam: GENERAL: elderly white male lying on bed appeared to be in no discomfort. HEENT: Normocephalic. Atraumatic. No conjunctival congestion or icterus. Patient has moist mucous membranes. NECK: Supple. Trachea midline. CHEST/LUNGS: Clear to auscultated bilaterally, breathing nonlabored. No wheezes crackles or rhonchi. HEART/CARDIOVASCULAR: Regular in rate and rhythm. S1 and S2 positive. ABDOMEN: Abdomen is soft, nontender. Patient has normal bowel sounds. SKIN: There is no rash. Warm and dry. NEURO: No focal motor deficit. Follows command. MUSCULOSKELETAL: No joint effusion or tenderness. EXTRIMITY: No edema, no cyanosis or clubbing. PSYCH: Cooperative. - Constitutional Vitals: Vital Signs - 12hr 06/22/17 06/22/17 06/22/17 04:00 07:26 07:29 Temperature 97.5 F L Pulse Rate 88 Pulse Rate [ 94 H Anterior Bilateral Throughout] Respiratory 20 Rate Respiratory 18 Rate [Anterior Bilateral Throughout] Blood Pressure Blood Pressure 145/64 [Right] O2 Sat by Pulse 95 95 Oximetry 06/22/17 06/22/17 06/22/17 07:52 07:53 09:38 Temperature 97.4 F L Pulse Rate 92 H 109 H Pulse Rate [ 91 H Anterior Bilateral Throughout] Respiratory 20 Rate Respiratory 18 Rate [Anterior Bilateral Throughout] Blood Pressure 153/65 Blood Pressure 162/72 [Right] O2 Sat by Pulse 95 Oximetry 06/22/17 09:59 Temperature Pulse Rate 94 H Pulse Rate [ Anterior Bilateral Throughout] Respiratory Rate Respiratory Rate [Anterior Bilateral Throughout] Blood Pressure Blood Pressure [Right] O2 Sat by Pulse Oximetry - Labs CBC & Chem 7: 06/23/17 03:40 06/23/17 03:40 Labs: Abnormal lab results 06/21/17 06/21/17 06/21/17 Range/Units 12:32 12:32 16:23 RBC (3.65-5.03) M/mm3 Hgb (11.8-15.2) gm/dl Hct (35.5-45.6) % RDW (13.2-15.2) % Lymph % (Auto) (13.4-35.0) % [place] % (Auto) (0.0-7.3) % Eos % (Auto) (0.0-4.3) % Lymph # (1.2-5.4) K/mm3 Seg Neutrophils % (40.0-70.0) % BUN 37 H (9-20) mg/dL Creatinine 1.7 H (0.8-1.5) mg/dL Glucose 113 H (75-100) mg/dL Calcium 8.3 L (8.4-10.2) mg/dL Troponin T 0.076 H (0.00-0.029) ng/mL Urine WBC (Auto) 160.0 H (0.0-6.0) /HPF 06/22/17 06/22/17 Range/Units 05:09 05:09 RBC 2.99 L (3.65-5.03) M/mm3 Hgb 9.2 L (11.8-15.2) gm/dl Hct 28.0 L (35.5-45.6) % RDW 17.3 H (13.2-15.2) % Lymph % (Auto) 8.4 L (13.4-35.0) % [place] % (Auto) 11.6 H (0.0-7.3) % Eos % (Auto) 4.7 H (0.0-4.3) % Lymph # 0.5 L (1.2-5.4) K/mm3 Seg Neutrophils % 74.7 H (40.0-70.0) % BUN 32 H (9-20) mg/dL Creatinine 1.7 H (0.8-1.5) mg/dL Glucose 118 H (75-100) mg/dL Calcium (8.4-10.2) mg/dL Troponin T (0.00-0.029) ng/mL Urine WBC (Auto) (0.0-6.0) /HPF
[2017-06-22] MEDS ORDERED: XANAX PO PRN (11:27)
--- NOTE | 2017-06-22 16:25 | Progress Note ---
Assessment and Plan Patient anxious. Patient awake on 2 litres O2 O2 saturation 99%. No acute respiratory distress. - Patient Problems (1) Acute and chronic respiratory failure Current Visit: Yes Status: Acute Qualifiers: Respiratory failure complication: hypoxia Qualified Code(s): J96.21 - Acute and chronic respiratory failure with hypoxia Plan to address problem: O2 supplementation 3 litres. Brovanna/Budesonide aerosol treatments q 12 hours. Patient is on Apixaban. Continue famotadine. Continue Levaquine. (2) ARF (acute renal failure) Current Visit: Yes Status: Acute Qualifiers: Acute renal failure type: with acute tubular necrosis Qualified Code(s): N17.0 - Acute kidney failure with tubular necrosis Plan to address problem: Management as per nephrology. (3) Lung cancer, middle lobe Current Visit: Yes Status: Acute Plan to address problem: Patient diagnosed with squamous cell CA. Patient refered to [facility]. Patient presently receiving radiation therapy. (4) Anemia of chronic disease Current Visit: Yes Status: Acute Plan to address problem: Management as per primary care. (5) Pulmonary embolism Current Visit: Yes Status: Acute Qualifiers: Pulmonary embolism type: P Chronicity: C Acute cor pulmonale presence: A Plan to address problem: Patient is on Apixaban. Subjective Date of service: 06/22/17 Interval history: Patient anxious. Patient awake on 2 litres O2 O2 saturation 99%. No acute respiratory distress. Objective Vital Signs - 12hr 06/22/17 06/22/17 06/22/17 07:26 07:29 07:52 Temperature Pulse Rate Pulse Rate [ 94 H 91 H Anterior Bilateral Throughout] Respiratory Rate Respiratory 18 18 Rate [Anterior Bilateral Throughout] Blood Pressure Blood Pressure [Right] O2 Sat by Pulse 95 Oximetry 06/22/17 06/22/17 06/22/17 07:53 09:38 09:59 Temperature 97.4 F L Pulse Rate 92 H 109 H 94 H Pulse Rate [ Anterior Bilateral Throughout] Respiratory 20 Rate Respiratory Rate [Anterior Bilateral Throughout] Blood Pressure 153/65 Blood Pressure 162/72 [Right] O2 Sat by Pulse 95 Oximetry 06/22/17 13:27 Temperature 97.5 F L Pulse Rate 90 Pulse Rate [ Anterior Bilateral Throughout] Respiratory 22 Rate Respiratory Rate [Anterior Bilateral Throughout] Blood Pressure Blood Pressure 156/59 [Right] O2 Sat by Pulse 99 Oximetry Constitutional: no acute distress, alert, other (Anxious.) Eyes: non-icteric ENT: oropharynx moist Neck: supple, no lymphadenopathy Ascultation: Bilateral: diminished breath sounds Cardiovascular: regular rate and rhythm Gastrointestinal: normoactive bowel sounds, soft, non-tender Integumentary: normal Extremities: no cyanosis, no edema Neurologic: normal mental status, non-focal exam, pupils equal and round, CN II- XII normal Psychiatric: other (Anxious) CBC and BMP: 06/22/17 05:09 06/22/17 05:09 ABG, PT/INR, D-dimer: PT/INR, D-dimer PT 17.9 Sec. (12.2-14.9) H 06/20/17 13:24 INR 1.40 (0.87-1.13) H 06/20/17 13:24 Abnormal lab findings: Abnormal Labs 06/21/17 06/21/17 06/21/17 12:32 12:32 16:23 RBC Hgb Hct RDW Lymph % (Auto) [place] % (Auto) Eos % (Auto) Lymph # Seg Neutrophils % BUN 37 H Creatinine 1.7 H Glucose 113 H Calcium 8.3 L Troponin T 0.076 H Urine WBC (Auto) 160.0 H 06/22/17 06/22/17 05:09 05:09 RBC 2.99 L Hgb 9.2 L Hct 28.0 L RDW 17.3 H Lymph % (Auto) 8.4 L [place] % (Auto) 11.6 H Eos % (Auto) 4.7 H Lymph # 0.5 L Seg Neutrophils % 74.7 H BUN 32 H Creatinine 1.7 H Glucose 118 H Calcium Troponin T Urine WBC (Auto) Chest x-ray: report reviewed (Right middle lobe density.), image reviewed
[2017-06-22] MEDS: AMBIEN PO SCH (21:27)
[2017-06-23 04:09] LABS: Hematocrit 26.2 % (35.5-45.6); Hemoglobin 8.5 gm/dl (11.8-15.2)
[2017-06-23 04:13] LABS: Calcium 7.8 mg/dL (8.4-10.2); Chloride 108.1 mmol/L (98-107); Potassium 4.9 mmol/L (3.6-5.0)
--- NOTE | 2017-06-23 04:27 | Event Note ---
Date: 06/23/17 Nurse called that patient fell, but no injuries. Did not hit head. Recommend neurochecks and report any change in condition.
[2017-06-23] MEDS: NACL 0.9% 1000 ML 1,000 ML IV SCH (05:54)
[2017-06-23] MEDS: SYNTHROID PO SCH (05:54)
--- NOTE | 2017-06-23 07:36 | Ultrasound Report ---
ULTRASOUND RENAL BILATERAL HISTORY: Chronic kidney disease. TECHNIQUE: transabdominal ultrasound with color Doppler interrogation. COMPARISON: 04/16/15. FINDINGS: The right kidney measures 8.3 x 4.2 x 4.3cm. Right renal cortex: 1.2cm. The left kidney measures 9.2 x 5.2 x 4.2cm. Left renal cortex: 1.3cm. Both kidneys are slightly atrophic with mild increased renal parenchymal echotexture. There is no evidence for cystic disease, mass, calculus or hydronephrosis. The bladder is unremarkable. No significant change since 2014. IMPRESSION: Chronic renal parenchymal disease.
[2017-06-23] MEDS: BROVANA NEBU IH SCH ×2 (08:58→20:24)
[2017-06-23] MEDS: SPIRIVA IH SCH ×2 (08:58→11:57)
[2017-06-23] MEDS: PULMICORT IH SCH ×2 (08:58→20:23)
[2017-06-23] MEDS: ROCALTROL PO SCH (09:24)
[2017-06-23] MEDS: ELIQUIS PO SCH ×2 (09:24→22:46)
[2017-06-23] MEDS: FLOMAX PO SCH (09:25)
[2017-06-23] MEDS: LOPRESSOR PO SCH ×2 (09:25→22:43)
[2017-06-23] MEDS: PEPCID PO SCH ×2 (09:25→22:43)
[2017-06-23 09:26] LABS: Iron 34 ug/dL (49-181); Total Iron Binding Capacity 144 mcg/dL (250-450)
[2017-06-23] MEDS ORDERED: LEVAQUIN PO SCH ×2 (10:00→13:00)
[2017-06-23] MEDS: LEVAQUIN PO SCH (13:08)
--- NOTE | 2017-06-23 15:59 | Progress Note ---
Assessment and Plan /Acute on chronic hypoxic respiratory failure Due to underlying lung cancer and COPD exacerbation Supplemental oxygen, supportive care assess for home O2 requirement /Lung cancer RUL stage IV Recently treated with antibiotics by his family manager, with no improvement Symptoms likely related to progression of malignancy Supportive care, supplemental oxygen Pulmonary following /Previously diagnosed PE Anticoagulated with Eliquis V/Q scan unequivocal /Acute renal failure Likely secondary to vasomotor nephropathy Give IV fluids, encourage freewater intake Monitor closely, Cr 1.5 today /Hyperkalemia Mild, Treated medically resolved /Anemia Likely anemia of chronic disease work up showed Iron deficiency started Iron replacement will also order stool for occult blood /Malnutrition Consulted dietitian for supplementation / Hypothyroidism Continue Synthroid / Hypertension Continue beta alley, hold Lasix for acute renal failure /DVT prophylaxis On eliquis Brief history: 81 yo Male with Lung Cancer, COPD, Chronic Respiratory Failure on Home oxygen, PE on Anticoagulation, HTN, Hypothyroidism, GERD, OA, BPH, Hypothyroidism, brought to the hospital for worsening shortness of breath, decreased oral intake and progressive weakness. Subjective Date of service: 06/23/17 Interval history: Patient seen and examined. Medical records and medication list reviewed. Patient had an event of fall last night, Did poorly with PT today wants to go home. Patient denies any chest pain or difficulty breathing. Patient is tolerating diet. Updated at bedside. Discussed plan of care at bedside with patient. Objective - Exam Narrative Exam: GENERAL: elderly white male lying on bed appeared to be in no discomfort. HEENT: Normocephalic. Atraumatic. No conjunctival congestion or icterus. Patient has moist mucous membranes. NECK: Supple. Trachea midline. CHEST/LUNGS: Clear to auscultated bilaterally, breathing nonlabored. No wheezes crackles or rhonchi. HEART/CARDIOVASCULAR: Regular in rate and rhythm. S1 and S2 positive. ABDOMEN: Abdomen is soft, nontender. Patient has normal bowel sounds. SKIN: There is no rash. Warm and dry. NEURO: No focal motor deficit. Follows command. MUSCULOSKELETAL: No joint effusion or tenderness. EXTRIMITY: No edema, no cyanosis or clubbing. PSYCH: Cooperative. - Constitutional Vitals: Vital Signs - 12hr 06/23/17 06/23/17 06/23/17 07:54 08:59 09:19 Temperature 97.8 F Pulse Rate 84 Pulse Rate [ 125 H 124 H Anterior Bilateral Throughout] Pulse Rate [ Right Radial] Respiratory 22 Rate Respiratory 20 18 Rate [Anterior Bilateral Throughout] Blood Pressure Blood Pressure 166/73 [Right] O2 Sat by Pulse 99 92 Oximetry 06/23/17 06/23/17 06/23/17 09:25 10:00 12:07 Temperature 97.8 F Pulse Rate 84 84 91 H Pulse Rate [ Anterior Bilateral Throughout] Pulse Rate [ 84 Right Radial] Respiratory 18 22 Rate Respiratory Rate [Anterior Bilateral Throughout] Blood Pressure 166/73 Blood Pressure 146/59 [Right] O2 Sat by Pulse 99 98 Oximetry - Labs CBC & Chem 7: 06/24/17 05:24 06/24/17 05:24 Labs: Abnormal lab results 06/23/17 06/23/17 06/23/17 Range/Units 03:40 03:40 08:54 Hgb 8.5 L (11.8-15.2) gm/dl Hct 26.2 L (35.5-45.6) % Chloride 108.1 H (98-107) mmol/L BUN 28 H (9-20) mg/dL Calcium 7.8 L (8.4-10.2) mg/dL Iron 34 L (49-181) ug/dL TIBC 144 L (250-450) mcg/dL
--- NOTE | 2017-06-23 16:02 | Consultation ---
History of Present Illness - Reason for Consult Consult date: 06/23/17 chronic renal failure Requesting physician: LON MATHIAS - History of Present Illness 81 YO Male with Lung Cancer, Chronic Respiratory Failure on Home oxygen, PE on Anticoagulation, HTN, COPD, OA, GERD, BPH, Hypothyroidism presents to ED for evaluation. Pt states that he has experienced shortness of breath over the past 2-3 weeks, with worsening symptoms over the past 3 days. Pt acknowledges that patient has decreased oral intake, and has become more weak and more agitated. PT was recent seen by his Coffee Sampler and was treated with oral antibiotics without improvement. Pt subsequently seen by his PCP and was instructed to present to [facility] for evaluation. Pt states that he has dypsnea at rest and can only walk about 8 feet. Pt denies fever, chills, CP, Palpitations, NVD, Syncope, Trauma, Falls,BRBPR, Hemoptysis, Productive cough, Medication Noncompliance, or recent ill contacts. Pt seen and evaluated in ED and found to be in respiratory distress. Past History Past Medical History: arthritis, cancer, COPD, GERD, hypertension, hypothyroidism Past Surgical History: Other (colostomy) Social history: , lives with family. denies: smoking, alcohol abuse, prescription drug abuse, IV drug use Family history: hypertension Medications and Allergies Allergies Allergy/AdvReac Type Severity Reaction Status Date / Time Sulfa (Sulfonamide Allergy Itching Unverified 09/15/13 10:50 Antibiotics) Home Medications Medication Instructions Recorded Confirmed Last Taken Type Albuterol Sulfate [Ventolin HFA] 2 puff IH Q4H PRN 01/22/17 06/20/17 06/20/17 History Calcitriol [Calcitriol] 0.25 mg PO DAILY 01/22/17 06/20/17 06/19/17 History Fluticasone/Salmeterol [Advair 1 puff IH BID 01/22/17 06/20/17 06/20/17 History Diskus 500-50 mcg] Furosemide [Furosemide] 40 mg PO Q48H 01/22/17 06/20/17 06/19/17 History Levothyroxine [Synthroid] 50 mcg PO QAM 01/22/17 06/20/17 06/20/17 History Omeprazole [Omeprazole] 40 mg PO QAM 01/22/17 06/20/17 06/20/17 History Tamsulosin HCl [Tamsulosin HCl] 0.4 mg PO DAILY 01/22/17 06/20/17 06/20/17 History Tiotropium [Spiriva] 18 mcg IH QDAY 01/22/17 06/20/17 06/20/17 History Apixaban [Eliquis] 5 mg PO BID 06/20/17 06/20/17 06/20/17 History Clindamycin [Clindamycin CAP] 600 mg PO TID 06/20/17 06/20/17 06/20/17 History Metoprolol [Lopressor] 12.5 mg PO BID 06/20/17 06/20/17 06/20/17 History Active Meds: Active Medications Acetaminophen (Tylenol) 650 mg PO Q4H PRN PRN Reason: Pain MILD(1-3)/Fever >100.5/MAXWELL Albuterol (Proventil) 2.5 mg IH Q4H PRN PRN Reason: Shortness Of Breath Last Admin: 06/20/17 20:50 Dose: 2.5 mg Alprazolam (Xanax) 0.25 mg PO Q8H PRN PRN Reason: Anxiety Apixaban (Eliquis) 5 mg PO BID [facility] PRN Reason: Protocol Last Admin: 06/23/17 09:24 Dose: 5 mg Arformoterol Tartrate (Brovana Nebu) 15 mcg IH Q12HRT [facility] Last Admin: 06/23/17 08:58 Dose: 15 mcg Budesonide (Pulmicort) 0.5 mg IH Q12HRT [facility] Last Admin: 06/23/17 08:58 Dose: 0.5 mg Calcitriol (Rocaltrol) 0.25 mcg PO DAILY [facility] Last Admin: 06/23/17 09:24 Dose: 0.25 mcg Famotidine (Pepcid) 20 mg PO BID [facility] Last Admin: 06/23/17 09:25 Dose: 20 mg Ferrous Sulfate (Feosol) 325 mg PO BID [facility] Levofloxacin (Levaquin) 250 mg PO Q24HR [facility] Last Admin: 06/23/17 13:08 Dose: 250 mg Levothyroxine Sodium (Synthroid) 50 mcg PO QAM@0600 [facility] Last Admin: 06/23/17 05:54 Dose: 50 mcg Metoprolol Tartrate (Lopressor) 12.5 mg PO BID [facility] Last Admin: 06/23/17 09:25 Dose: 12.5 mg Ondansetron HCl (Zofran) 4 mg IV Q8H PRN PRN Reason: N/V unrelieved by Heather Tamsulosin HCl (Flomax) 0.4 mg PO DAILY [facility] Last Admin: 06/23/17 09:25 Dose: 0.4 mg Tiotropium [place] (Spiriva) 1 puff IH Q24HR [facility] Last Admin: 06/23/17 11:57 Dose: Not Given Zolpidem Tartrate (Ambien) 5 mg PO QHS [facility] Last Admin: 06/22/17 21:27 Dose: 5 mg Review of Systems All systems: negative (negative except as noted above) Exam - Vital Signs Vital signs: Vital Signs Pulse Pulse Ox 86 95 06/20/17 13:12 06/20/17 13:12 - General Appearance General appearance: chronically ill, frail, other (pleasant elderly male) EENT: PERRL, mucous membranes moist Neck: Present: neck supple, trachea midline. Absent: JVD/HJR, Masses Respiratory: Wheezes (bilateral wheezing) Heart: regular, normal heart rate, S1S2, no murmurs Gastrointestinal: Present: normal, normoactive bowel sounds Integumentary: other (no edema) Results - Lab Results 06/23/17 03:40 06/23/17 03:40 Most recent lab results Calcium 7.8 mg/dL (8.4-10.2) L 06/23/17 03:40 Assessment and Plan Impression * Chronic kidney disease * COPD * Lung cancer * Sinusitis * Anemia * Hyperkalemia * History of pulmonary embolism * UTI Recommendations * Patient's renal function seems to be at baseline. Serum creatinine recently in the office has been ranging between 1.9-2.0 * Shall check a fractional excretion of sodium * Check office records for other renal workup * Shall discontinue his IV fluid for now * Antibiotic therapy as per primary team * His hyperkalemia has been corrected * Avoid nephrotoxins * Strict intake and output * Monitor patient's fluid status and electrolytes closely * Thank you very much for the consultation. Shall follow along with you
--- NOTE | 2017-06-23 19:23 | Progress Note ---
Assessment and Plan Patient anxious. Patient awake on 4 litres O2 O2 saturation 97%. No acute respiratory distress. - Patient Problems (1) Acute and chronic respiratory failure Current Visit: Yes Status: Acute Qualifiers: Respiratory failure complication: hypoxia Qualified Code(s): J96.21 - Acute and chronic respiratory failure with hypoxia Plan to address problem: O2 supplementation 4 litres. Brovanna/Budesonide aerosol treatments q 12 hours. Patient is on Apixaban. Continue famotadine. Continue Levaquine. (2) ARF (acute renal failure) Current Visit: Yes Status: Acute Qualifiers: Acute renal failure type: with acute tubular necrosis Qualified Code(s): N17.0 - Acute kidney failure with tubular necrosis Plan to address problem: Management as per nephrology. (3) Lung cancer, middle lobe Current Visit: Yes Status: Acute Plan to address problem: Patient diagnosed with squamous cell CA. Patient refered to [facility]. Patient presently receiving radiation therapy. (4) Anemia of chronic disease Current Visit: Yes Status: Acute Plan to address problem: Management as per primary care. (5) Pulmonary embolism Current Visit: Yes Status: Acute Qualifiers: Pulmonary embolism type: P Chronicity: C Acute cor pulmonale presence: A Plan to address problem: Patient is on Apixaban. Subjective Date of service: 06/23/17 Interval history: Patient anxious. Patient awake on 4 litres O2 O2 saturation 97%. No acute respiratory distress. Objective Vital Signs - 12hr 06/23/17 06/23/17 06/23/17 07:54 08:59 09:19 Temperature 97.8 F Pulse Rate 84 Pulse Rate [ 125 H 124 H Anterior Bilateral Throughout] Pulse Rate [ Right Radial] Respiratory 22 Rate Respiratory 20 18 Rate [Anterior Bilateral Throughout] Blood Pressure Blood Pressure 166/73 [Right] O2 Sat by Pulse 99 92 Oximetry 06/23/17 06/23/17 06/23/17 09:25 10:00 12:07 Temperature 97.8 F Pulse Rate 84 84 91 H Pulse Rate [ Anterior Bilateral Throughout] Pulse Rate [ 84 Right Radial] Respiratory 18 22 Rate Respiratory Rate [Anterior Bilateral Throughout] Blood Pressure 166/73 Blood Pressure 146/59 [Right] O2 Sat by Pulse 99 98 Oximetry Constitutional: no acute distress, alert, other (Anxious.) Eyes: non-icteric ENT: oropharynx moist Neck: supple, no lymphadenopathy Ascultation: Bilateral: diminished breath sounds Cardiovascular: regular rate and rhythm Gastrointestinal: normoactive bowel sounds, soft, non-tender Integumentary: normal Extremities: no cyanosis, no edema Neurologic: normal mental status, non-focal exam, pupils equal and round, CN II- XII normal Psychiatric: other (Anxious) CBC and BMP: 06/23/17 03:40 06/23/17 03:40 ABG, PT/INR, D-dimer: PT/INR, D-dimer PT 17.9 Sec. (12.2-14.9) H 06/20/17 13:24 INR 1.40 (0.87-1.13) H 06/20/17 13:24 Abnormal lab findings: Abnormal Labs 06/21/17 06/21/17 06/21/17 12:32 12:32 16:23 RBC Hgb Hct RDW Lymph % (Auto) [place] % (Auto) Eos % (Auto) Lymph # Seg Neutrophils % Chloride BUN 37 H Creatinine 1.7 H Glucose 113 H Calcium 8.3 L Iron TIBC Troponin T 0.076 H Urine WBC (Auto) 160.0 H 06/22/17 06/22/17 06/23/17 05:09 05:09 03:40 RBC 2.99 L Hgb 9.2 L 8.5 L Hct 28.0 L 26.2 L RDW 17.3 H Lymph % (Auto) 8.4 L [place] % (Auto) 11.6 H Eos % (Auto) 4.7 H Lymph # 0.5 L Seg Neutrophils % 74.7 H Chloride BUN 32 H Creatinine 1.7 H Glucose 118 H Calcium Iron TIBC Troponin T Urine WBC (Auto) 06/23/17 06/23/17 03:40 08:54 RBC Hgb Hct RDW Lymph % (Auto) [place] % (Auto) Eos % (Auto) Lymph # Seg Neutrophils % Chloride 108.1 H BUN 28 H Creatinine Glucose Calcium 7.8 L Iron 34 L TIBC 144 L Troponin T Urine WBC (Auto)
[2017-06-23] MEDS: AMBIEN PO SCH (22:43)
[2017-06-23] MEDS: FEOSOL PO SCH (22:46)
[2017-06-24 05:38] LABS: Hematocrit 25.5 % (35.5-45.6); Hemoglobin 8.4 gm/dl (11.8-15.2)
[2017-06-24 06:07] LABS: Calcium 8.2 mg/dL (8.4-10.2); Potassium 4.7 mmol/L (3.6-5.0)
[2017-06-24] MEDS: BROVANA NEBU IH SCH (07:46)
[2017-06-24] MEDS: PULMICORT IH SCH (07:46)
[2017-06-24] MEDS: SPIRIVA IH SCH ×2 (08:04→10:33)
--- NOTE | 2017-06-24 08:22 | Progress Note ---
Assessment and Plan Impression * Stage III chronic kidney disease - b/l SCr 1.9-2.0nmg/dL * COPD * Lung cancer * Sinusitis * Anemia * Hyperkalemia - resolved * History of pulmonary embolism * UTI Recommendations * Renal function is at baseline * Continue current management. Encourage po hydration * Antibiotic therapy as per primary team * Avoid nephrotoxins * Strict intake and output * Monitor patient's fluid status and electrolytes closely Subjective Date of service: 06/24/17 Interval history: Patient has no complaints. Reports chronic SOB but no worse than baseline. Objective - Vital Signs Vital signs: Vital Signs - 12hr 06/23/17 06/23/17 06/23/17 20:27 20:39 22:00 Temperature Pulse Rate Pulse Rate [ 107 H Anterior Bilateral Throughout] Pulse Rate [ 107 H Right Radial] Respiratory Rate Respiratory 20 Rate [Anterior Bilateral Throughout] Blood Pressure Blood Pressure [Right] O2 Sat by Pulse 95 Oximetry 06/23/17 06/24/17 06/24/17 22:43 05:45 07:48 Temperature 99.5 F Pulse Rate 103 H 86 Pulse Rate [ 110 H Anterior Bilateral Throughout] Pulse Rate [ Right Radial] Respiratory 20 Rate Respiratory 20 Rate [Anterior Bilateral Throughout] Blood Pressure 168/71 Blood Pressure 126/59 [Right] O2 Sat by Pulse 95 Oximetry 06/24/17 06/24/17 07:52 07:56 Temperature 98.8 F Pulse Rate 20 L Pulse Rate [ 115 H Anterior Bilateral Throughout] Pulse Rate [ Right Radial] Respiratory 20 Rate Respiratory 20 Rate [Anterior Bilateral Throughout] Blood Pressure Blood Pressure 150/65 [Right] O2 Sat by Pulse 99 Oximetry - General Appearance General appearance: well-developed, well-nourished EENT: ATNC Respiratory: Absent: Rales, Ronchi, Wheezes Cardiology: regular, S1S2 Gastrointestinal: normal, no tenderness, no distended Integumentary: no rash Musculoskeletal: other (no edema) Psychiatric: cooperative - Lab 06/24/17 05:24 06/24/17 05:24 Most recent lab results Calcium 8.2 mg/dL (8.4-10.2) L 06/24/17 05:24
[2017-06-24] MEDS: LEVAQUIN PO SCH (09:27)
[2017-06-24] MEDS: ELIQUIS PO SCH (09:27)
[2017-06-24] MEDS: FLOMAX PO SCH (09:27)
[2017-06-24] MEDS: PEPCID PO SCH (09:27)
[2017-06-24] MEDS: FEOSOL PO SCH (09:28)
[2017-06-24] MEDS: LOPRESSOR PO SCH (09:28)
[2017-06-24] MEDS: ROCALTROL PO SCH (09:28)
[2017-06-24 09:29] VITALS: BP 140/70
--- NOTE | 2017-06-24 11:24 | Discharge Summary ---
Providers - Providers Date of Admission: 06/20/17 18:30 Date of discharge: 06/24/17 Attending physician: LON MATHIAS 06/20/17 19:52 Consult to Physician [CONS] Routine Consulting Provider: CLAUDE FRIEDMAN Reason For Exam: Lung cancer Place consult to:: dr. friedman Notified:: yes Phone number called:: [phone] Was contact made?: Yes If yes, spoke with:: dr. clarke Time called:: 08:25 Comment:: segundo 06/22/17 11:28 Consult to Physician [CONS] Routine Consulting Provider: BELLE PATEL Reason For Exam: CKD Place consult to:: Notified:: Phone number called:: [phone] Was contact made?: Yes If yes, spoke with:: STEPHANIE Time called:: 13:02 Comment:: MARQUITA Physical Therapy Evaluation and Treat [CONS] Routine Comment: Reason For Exam: d/c planning Primary care physician: ROOF PANEL HANGER Hospitalization Condition: Stable Hospital course: Brief history: 81 yo Male with Lung Cancer, COPD, Chronic Respiratory Failure on Home oxygen, PE on Anticoagulation, HTN, Hypothyroidism, GERD, OA, BPH, Hypothyroidism, brought to the hospital for worsening shortness of breath, decreased oral intake and progressive weakness. Discharge diagnosis and management: /Acute on chronic hypoxic respiratory failure Due to underlying lung cancer and COPD exacerbation Supplemental oxygen, supportive care assess for home O2 requirement /Lung cancer RUL stage IV Recently treated with antibiotics by his records specialist, with no improvement Symptoms likely related to progression of malignancy Supportive care, supplemental oxygen Pulmonary following /Previously diagnosed PE Anticoagulated with Eliquis V/Q scan unequivocal /Acute renal failure Likely secondary to vasomotor nephropathy Give IV fluids, encourage freewater intake Monitored closely, Cr 1.4 on discharge /Hyperkalemia Mild, Treated medically resolved /Anemia Likely anemia of chronic disease work up showed Iron deficiency started Iron replacement will also order stool for occult blood /Malnutrition Consulted dietitian for supplementation / Hypothyroidism Continue Synthroid / Hypertension Continue beta alley, hold Lasix for acute renal failure /UTI, cont levaquin po to complete course /DVT prophylaxis On eliquis Disposition: [id number]/[place]-06 HOME UNDER HOME [facility] Time spent for discharge: 32 minutes Core Measure Documentation - Palliative Care Palliative Care/ Comfort Measures: Not Applicable - Core Measures Any of the following diagnoses?: none Exam - Physical Exam Narrative exam: GENERAL: elderly white male lying on bed appeared to be in no discomfort. HEENT: Normocephalic. Atraumatic. No conjunctival congestion or icterus. Patient has moist mucous membranes. NECK: Supple. Trachea midline. CHEST/LUNGS: Clear to auscultated bilaterally, breathing nonlabored. No wheezes crackles or rhonchi. HEART/CARDIOVASCULAR: Regular in rate and rhythm. S1 and S2 positive. ABDOMEN: Abdomen is soft, nontender. Patient has normal bowel sounds. SKIN: There is no rash. Warm and dry. NEURO: No focal motor deficit. Follows command. MUSCULOSKELETAL: No joint effusion or tenderness. EXTRIMITY: No edema, no cyanosis or clubbing. PSYCH: Cooperative. - Constitutional Vitals: Temp Pulse Resp BP Pulse Ox 98.8 F 83 18 140/70 99 06/24/17 07:52 06/24/17 10:00 06/24/17 10:00 06/24/17 09:28 06/24/17 10:00 Plan Activity: up only with assistance, fall precautions Weight Bearing Status: Non-Weight Bearing Diet: renal Follow up with: PRIMARY CAREMD [Primary Care Provider] - 3-5 Days Prescriptions: Levofloxacin [Levaquin] 250 mg PO QDAY #4 tablet
== END 2017-06-24 14:05 | disposition home or self-care (01) | DRG 180 ==
LOC: ED 12:54 → CC2 18:30
PROVIDERS: ADMIT Internal Medicine; ATTEND Internal Medicine
DX: C34.11 Malignant neoplasm of upper lobe, right bronchus or lung (principal); J96.20 Acute and chronic respiratory failure, unspecified whether with hypoxia or hypercapnia; N17.0 Acute kidney failure with tubular necrosis; E43 Unspecified severe protein-calorie malnutrition; J44.1 Chronic obstructive pulmonary disease with (acute) exacerbation; N39.0 Urinary tract infection, site not specified; E87.5 Hyperkalemia; E03.9 Hypothyroidism, unspecified; K21.9 Gastro-esophageal reflux disease without esophagitis; J32.9 Chronic sinusitis, unspecified; I12.9 Hypertensive chronic kidney disease with stage 1 through stage 4 chronic kidney disease, or unspecified chronic kidney disease; N18.3 Chronic kidney disease, stage 3 (moderate); M19.90 Unspecified osteoarthritis, unspecified site; N40.0 Benign prostatic hyperplasia without lower urinary tract symptoms; D63.8 Anemia in other chronic diseases classified elsewhere; Z68.23 Body mass index [BMI] 23.0-23.9, adult; Z79.01 Long term (current) use of anticoagulants; Z79.899 Other long term (current) drug therapy; Z88.2 Allergy status to sulfonamides; Z86.711 Personal history of pulmonary embolism; Z93.3 Colostomy status; Z99.81 Dependence on supplemental oxygen; Z82.49 Family history of ischemic heart disease and other diseases of the circulatory system
CPT/HCPCS: 36415; 71020; 76770; 78582; 80048; 80061; 81001; 82270; 82607; 82747; 83550; 84443; 84484; 85014; 85018; 85025; 85610; 85730; 87070; 87205; 93005; 93010; 94640; 94760; A9540; A9558; G8978-GP; G8979-GP; J1956; J7030

== ENCOUNTER 2017-11-01 12:38 | Inpatient (IN) | payer MEDICARE ==
--- NOTE | 2017-11-01 13:55 | Emergency Department Report ---
Chief Complaint: Rectal Pain Stated Complaint: BLOODY STOOLS Time Seen by Provider: 11/01/17 13:42 - HPI History of Present Illness: Patient here rectal pain and bleeding with abdominal pain. He was brought into the hospital last week on 10/22/2017 and states that 3 days. Patient also complained and of difficulty with bowel movement. reported that patient had a large amount of blood in the stool. Patient was recently on a request for pulmonary embolism which she has been taken off. Patient has multiple medical problems to include emphysema, diabetes, GERD history of heart attack, hypertension, pulmonary embolism hypothyroidism and. Has had a history of pacemaker and call colostomy for colon blockage in 2007 with reversal in 2008. Patient recently lab work shows that he was then acute renal insufficiency on his last visit. Troponin was elevated. He does have a history of kidney disease and been followed by Dr. Castillo. Dr. 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 Bauman is his primary care physician. - ROS Review of Systems: All systems are negative unless stated in HPI above - Exam Vital Signs: Vital Signs 11/01/17 12:44 Temperature 98.2 F Pulse Rate 103 H Respiratory 20 Rate Blood Pressure 128/53 [Right] O2 Sat by Pulse 98 Oximetry Physical Exam: Gen.: 81-year-old male frail-appearing, nontoxic in appearance Abdomen: Tender to palpate the abdominal quadrants, normal bowel sounds. Lungs: Diminished throughout lung baker due to chronic obstructive pulmonary disease and on O2 at 3 L nasal cannula. MSE screening note: Focused history and physical exam performed. Due to findings the following was ordered: See MDM ED Medical Decision Making - Medical Decision Making My screening MDM: Pt screened by provider and appropriate protocol ordered. Patient is currently in main ED and labs, diagnostic tests are pending ED Disposition for MSE Condition: Stable
[2017-11-01 14:57] LABS: Basophils % (Auto) 0.3 % (0.0-1.8); Eosinophils # (Auto) 0.1 K/mm3 (0.0-0.4); Eosinophils % (Auto) 1.2 % (0.0-4.3); Hematocrit 35.3 % (35.5-45.6); Hemoglobin 11.5 gm/dl (11.8-15.2); Lymphocytes # (Auto) 0.7 K/mm3 (1.2-5.4); Lymphocytes % (Auto) 6.8 % (13.4-35.0); Mean Corpuscular HGB Conc 32 % (32-34); Mean Corpuscular Hemoglobin 29 pg (28-32); Mean Corpuscular Volume 89 fl (84-94); Monocytes # (Auto) 1.1 K/mm3 (0.0-0.8); Monocytes % (Auto) 11.5 % (0.0-7.3); Platelet Count 179 K/mm3 (140-440); Red Blood Count 3.96 M/mm3 (3.65-5.03)
[2017-11-01 14:59] LABS: Red Cell Distribution Width 22.3 % (13.2-15.2)
--- NOTE | 2017-11-01 15:06 | XRay Report ---
FINAL REPORT PROCEDURE: Portable flat upright abdomen TECHNIQUE: Abdominal series, including portable supine and upright AP views. HISTORY: rectal bleed, abdominal pain COMPARISON: No prior studies are available for comparison. FINDINGS: Nonspecific bowel gas pattern present. No changes to suggest obstruction ileus or free intraperitoneal gas. There are multiple surgical clips and enteric suture lines overlying the mid pelvis. No abnormal masses are seen. No acute bony abnormalities are identified. IMPRESSION: Postsurgical changes seen overlying the pelvis as described. No acute abnormalities are identified..
[2017-11-01] MEDS ORDERED: VALIUM PO ONE (15:11)
[2017-11-01 15:15] LABS: Albumin 3.6 g/dL (3.9-5); Calcium 8.7 mg/dL (8.4-10.2)
--- NOTE | 2017-11-01 15:16 | Emergency Department Report ---
ED GI Bleed HPI - General Chief complaint: Rectal Pain Stated complaint: BLOODY STOOLS Time Seen by Provider: 11/01/17 13:42 Source: patient, family Mode of arrival: Wheelchair Limitations: No Limitations - History of Present Illness Initial comments: Patient history of COPD recently discharged from hospital for acute exacerbation also has a history of lung cancer and PE recently stopped taking eliquis with a history of pneumonia as well. hx of diverticualr dz, on asa Patient is here for evaluation of rectal bleeding after straining at the stool times several episodes. He was having bright red blood on the toilet paper and in the toilet bowl w/ ? maroon stool, here for eval, no syncope no sob. no c p no other c/o, occ int. hiccups, his has been giving him hydrozine for it, ? relief here eval rectaleed, does have hx of colostomy s/p repair complaint: blood on toilet paper, gross hematochezia -: Gradual, days(s) Location: diffuse Severity scale (0 -10): 0 Quality: painless Improves with: none Worsens with: none Context: other (history of diverticular disease) - Related Data Home Medications Medication Instructions Recorded Confirmed Last Taken Albuterol Sulfate [Ventolin HFA] 2 puff IH Q4H PRN 01/22/17 10/22/17 06/20/17 Calcitriol 0.25 mg PO DAILY 01/22/17 10/22/17 06/19/17 Fluticasone/Salmeterol [Advair 1 puff IH BID 01/22/17 10/22/17 06/20/17 Diskus 500-50 mcg] Levothyroxine [Synthroid] 50 mcg PO DAILY 01/22/17 10/22/17 06/20/17 Omeprazole 40 mg PO QAM 01/22/17 10/22/17 06/20/17 Tamsulosin HCl 0.4 mg PO DAILY 01/22/17 10/22/17 06/20/17 Tiotropium [Spiriva] 18 mcg IH DAILY 01/22/17 10/22/17 06/20/17 Apixaban [Eliquis] 5 mg PO BID 06/20/17 10/22/17 06/20/17 Metoprolol [Lopressor TAB] 12.5 mg PO Q12H 06/20/17 10/22/17 06/20/17 Furosemide [Lasix TAB] 40 mg PO Q24HR 10/22/17 10/22/17 Unknown Polyethylene Glycol 3350 [Miralax 1 pack PO DAILY 10/22/17 10/22/17 Unknown 3350] Vit B Complx C/Folic Acid/Zinc 1 each PO DAILY 10/22/17 10/22/17 Unknown [Dialyvite 800-Zinc 15 mg Tab] Vit B12/Folic Acid/B6/Aa No.15 1 each PO DAILY 10/22/17 10/22/17 Unknown [Glycotrol Capsule] Previous Rx's Medication Instructions Recorded Last Taken Type Azithromycin [Zithromax Z-NIVIA] 0 mg PO DAILY #1 tab 10/25/17 Unknown Rx Prednisone [predniSONE 10 mg 10 mg PO .TAPER #1 tab.ds.pk 10/25/17 Unknown Rx (6-Day Pack, 21 Tabs)] Allergies Allergy/AdvReac Type Severity Reaction Status Date / Time Sulfa (Sulfonamide Allergy Itching Verified 10/22/17 09:22 Antibiotics) ED Review of Systems ROS: Stated complaint: BLOODY STOOLS Other details as noted in HPI Comment: All other systems reviewed and negative Constitutional: denies: diaphoresis, fever, malaise ENT: denies: dental pain, hearing loss, epistaxis Respiratory: SOB at rest, other. denies: shortness of breath, SOB with exertion , stridor Cardiovascular: denies: chest pain, palpitations, dyspnea on exertion, orthopnea , edema, syncope, paroxysmal nocturnal dyspnea Endocrine: denies: excessive sweating, increased hunger, increased thirst Gastrointestinal: hematochezia. denies: nausea, vomiting, diarrhea, constipation, hematemesis Genitourinary: denies: frequency, hematuria, discharge Musculoskeletal: denies: joint swelling, arthralgia, myalgia Neurological: denies: headache, weakness, numbness, paresthesias, confusion, abnormal gait, vertigo, other Psychiatric: denies: auditory hallucinations, homicidal thoughts, suicidal thoughts ED Past Medical Hx - Past Medical History Hx Hypertension: Yes Hx Heart Attack/AMI: No (no known coronary artery disease) Hx Congestive Heart Failure: No Hx Diabetes: No Hx Pulmonary Embolism: Yes Hx GERD: Yes (diagnosed Fall 2016) Hx Arthritis: Yes Hx Seizures: No Hx Asthma: No Hx COPD: Yes Hx Dementia: No Hx HIV: No Additional medical history: hypothyroidism,enlarged prostate - Surgical History Hx Pacemaker: No Additional Surgical History: colon blockage 2007,colostomy reversal in 2008 - Social History Smoking Status: Former Smoker - Medications Home Medications: Home Medications Medication Instructions Recorded Confirmed Last Taken Type Albuterol Sulfate [Ventolin HFA] 2 puff IH Q4H PRN 01/22/17 10/22/17 06/20/17 History Calcitriol 0.25 mg PO DAILY 01/22/17 10/22/17 06/19/17 History Fluticasone/Salmeterol [Advair 1 puff IH BID 01/22/17 10/22/17 06/20/17 History Diskus 500-50 mcg] Levothyroxine [Synthroid] 50 mcg PO DAILY 01/22/17 10/22/17 06/20/17 History Omeprazole 40 mg PO QAM 01/22/17 10/22/17 06/20/17 History Tamsulosin HCl 0.4 mg PO DAILY 01/22/17 10/22/17 06/20/17 History Tiotropium [Spiriva] 18 mcg IH DAILY 01/22/17 10/22/17 06/20/17 History Apixaban [Eliquis] 5 mg PO BID 06/20/17 10/22/17 06/20/17 History Metoprolol [Lopressor TAB] 12.5 mg PO Q12H 06/20/17 10/22/17 06/20/17 History Furosemide [Lasix TAB] 40 mg PO Q24HR 10/22/17 10/22/17 Unknown History Polyethylene Glycol 3350 [Miralax 1 pack PO DAILY 10/22/17 10/22/17 Unknown History 3350] Vit B Complx C/Folic Acid/Zinc 1 each PO DAILY 10/22/17 10/22/17 Unknown History [Dialyvite 800-Zinc 15 mg Tab] Vit B12/Folic Acid/B6/Aa No.15 1 each PO DAILY 10/22/17 10/22/17 Unknown History [Glycotrol Capsule] Azithromycin [Zithromax Z-NIVIA] 0 mg PO DAILY #1 tab 10/25/17 Unknown Rx Prednisone [predniSONE 10 mg 10 mg PO .TAPER #1 tab.ds.pk 03/04/18 Unknown Rx (6-Day Pack, 21 Tabs)] ED Physical Exam - General Limitations: No Limitations General appearance: alert - Head Head exam: Present: atraumatic, normocephalic - Eye Eye exam: Present: PERRL, EOMI - ENT ENT exam: Present: normal exam, normal orophraynx - Neck Neck exam: Present: normal inspection. Absent: tenderness, meningismus - Respiratory Respiratory exam: Present: wheezes, prolonged expiratory. Absent: respiratory distress, stridor, chest wall tenderness, accessory muscle use, decreased breath sounds - Cardiovascular Cardiovascular Exam: Present: regular rate, normal rhythm, tachycardia, normal heart sounds - GI/Abdominal GI/Abdominal exam: Present: soft. Absent: tenderness, guarding, rebound, rigid , mass, pulsatile mass - Rectal Rectal exam: Present: bloody stool. Absent: mass, tenderness - Extremities Exam Extremities exam: Present: normal capillary refill. Absent: tenderness, pedal edema, joint swelling, calf tenderness - Back Exam Back exam: Present: normal inspection. Absent: CVA tenderness (L), muscle spasm , paraspinal tenderness, vertebral tenderness - Neurological Exam Neurological exam: Present: alert, oriented X3, CN II-XII intact. Absent: motor sensory deficit - Skin Skin exam: Absent: erythema, urticaria, vesicles, petechiae ED Course Vital Signs 11/01/17 12:44 Temperature 98.2 F Pulse Rate 103 H Respiratory 20 Rate Blood Pressure 128/53 [Right] O2 Sat by Pulse 98 Oximetry - Reevaluation(s) Reevaluation #1: 11/01/17 16:13 Patient had laboratory studies was placed in a cam he did have initial screen and was sent to the main ED ED Medical Decision Making - Lab Data Result diagrams: 11/01/17 14:35 11/01/17 14:35 - EKG Data -: EKG Interpreted by Co EKG shows normal: sinus rhythm Rate: tachycardia - EKG Data 11/01/17 16:01 Sinus tachycardia 107 no acute ischemic changes - Radiology Data Radiology results: report reviewed - Medical Decision Making Patient does have heme positive maroon stool in the vault he has a history of diverticular disease case was discussed with Dr. Harman who will admit the patient for further evaluation. His H&H is improved from his May blood draw of 2016. But he is slightly tachycardic now at [phone]. He did recently stop eliquis he is also taking aspirin he'll need to be admitted for observation for hemodynamic stability and lower GI bleed. Patient does have a history of renal problems with elevated potassium today Dr. Harman did evaluate the patient in the ED for admission the case was also discussed with the [facility] who are aware of the patient. Critical care attestation.: If time is entered above; I have spent that time in minutes in the direct care of this critically ill patient, excluding procedure time. ED Disposition Clinical Impression: GIB (gastrointestinal bleeding), Renal failure, Hyperkalemia Disposition: OP ADMIT IP TO THIS HOSP Is pt being admited?: Yes Condition: Stable Referrals: PRIMARY CARE, [Primary Care Provider] - 3-5 Days Time of Disposition: 16:17
[2017-11-01 15:18] LABS: INR 0.95 (0.87-1.13)
[2017-11-01 15:19] LABS: Partial Thromboplastin Time 32.1 Sec. (24.2-36.6)
[2017-11-01 15:34] LABS: Chol/HDL Ratio 2.34 %
--- NOTE | 2017-11-01 15:42 | History and Physical Report ---
History of Present Illness Chief complaint: I was bleeding History of present illness: 81 YO Male with Lung Cancer, Chronic Respiratory Failure on Home Oxygen, PE not on therapeutic anticoagulation, HTN, COPD, OA, GERD, BPH, Hypothyroidism presents to ED for evaluation. Pt is confused and unable to provide detailed history. Pt history provided by and daughter who are at bedside during exam and interview. As per , the patient has experienced progressive generalized weakness, confusion, over the past week, and also had a large amount of blood in the stool today. No reports of fever, chills, CP, Palpitations, NVD, Syncope, Trauma, Falls, Hemoptysis, Productive cough, Medication Noncompliance, or recent ill contacts. Pt seen and evaluated in ED and found to have heme positive stools consistent with rectal bleeding, acute renal failure, and acute respiratory failure. Pt treated with supportive care, and admitted to telemetry. GI consulted in ED, as well as nephrology. Past History Past Medical History: arthritis, cancer, COPD, GERD, hypertension, hypothyroidism, pulmonary embolism, renal failure Past Surgical History: bowel surgery Social history: , lives with family. denies: smoking, alcohol abuse, prescription drug abuse Family history: hypertension Medications and Allergies Allergies Allergy/AdvReac Type Severity Reaction Status Date / Time Sulfa (Sulfonamide Allergy Itching Verified 10/22/17 09:22 Antibiotics) Home Medications Medication Instructions Recorded Confirmed Last Taken Type Albuterol Sulfate [Ventolin HFA] 2 puff IH Q4H PRN 01/22/17 10/22/17 06/20/17 History Calcitriol 0.25 mg PO DAILY 01/22/17 10/22/17 06/19/17 History Fluticasone/Salmeterol [Advair 1 puff IH BID 01/22/17 10/22/17 06/20/17 History Diskus 500-50 mcg] Levothyroxine [Synthroid] 50 mcg PO DAILY 01/22/17 10/22/17 06/20/17 History Omeprazole 40 mg PO QAM 01/22/17 10/22/17 06/20/17 History Tamsulosin HCl 0.4 mg PO DAILY 01/22/17 10/22/17 06/20/17 History Tiotropium [Spiriva] 18 mcg IH DAILY 01/22/17 10/22/17 06/20/17 History Apixaban [Eliquis] 5 mg PO BID 06/20/17 10/22/17 06/20/17 History Metoprolol [Lopressor TAB] 12.5 mg PO Q12H 06/20/17 10/22/17 06/20/17 History Furosemide [Lasix TAB] 40 mg PO Q24HR 10/22/17 10/22/17 Unknown History Polyethylene Glycol 3350 [Miralax 1 pack PO DAILY 10/22/17 10/22/17 Unknown History 3350] Vit B Complx C/Folic Acid/Zinc 1 each PO DAILY 10/22/17 10/22/17 Unknown History [Dialyvite 800-Zinc 15 mg Tab] Vit B12/Folic Acid/B6/Aa No.15 1 each PO DAILY 10/22/17 10/22/17 Unknown History [Glycotrol Capsule] Azithromycin [Zithromax Z-NIVIA] 0 mg PO DAILY #1 tab 10/25/17 Unknown Rx Prednisone [predniSONE 10 mg 10 mg PO .TAPER #1 tab.ds.pk 10/25/17 Unknown Rx (6-Day Pack, 21 Tabs)] Review of Systems ROS unobtainable: due to mental status Exam - Constitutional Vitals: Temp Pulse Resp BP Pulse Ox 98.2 F 103 H 20 128/53 98 11/01/17 12:44 11/01/17 12:44 11/01/17 12:44 11/01/17 12:44 11/01/17 12:44 General appearance: Present: mild distress, cachectic - EENT Eyes: Present: PERRL ENT: hearing intact, clear oral mucosa - Respiratory Respiratory effort: normal Respiratory: bilateral: diminished - Cardiovascular Heart Sounds: Present: S1 & S2. Absent: rub, click - Extremities Extremities: pulses symmetrical, No edema Peripheral Pulses: within normal limits - Abdominal General gastrointestinal: Present: soft, non-tender, non-distended, normal bowel sounds Male genitourinary: Present: normal - Integumentary Integumentary: Present: clear, dry, clammy, decreased turgor - Musculoskeletal Musculoskeletal: generalized weakness - Psychiatric Psychiatric: no intact judgment & insight, no memory intact - Neurologic Neurologic: CNII-XII intact, moves all extremities Results - Labs CBC & Chem 7: 11/01/17 14:35 11/01/17 17:37 Labs: Abnormal lab results 11/01/17 11/01/17 11/01/17 Range/Units 14:35 14:35 14:35 Hgb 11.5 L (11.8-15.2) gm/dl Hct 35.3 L (35.5-45.6) % RDW 22.3 H (13.2-15.2) % Lymph % (Auto) 6.8 L (13.4-35.0) % Taylor % (Auto) 11.5 H (0.0-7.3) % Lymph # 0.7 L (1.2-5.4) K/mm3 Taylor # 1.1 H (0.0-0.8) K/mm3 Seg Neutrophils % 80.2 H (40.0-70.0) % Seg Neutrophils # 8.0 H (1.8-7.7) K/mm3 Sodium 135 L (137-145) mmol/L Potassium 6.0 H (3.6-5.0) mmol/L BUN 68 H (9-20) mg/dL Creatinine 2.5 H (0.8-1.5) mg/dL Glucose 124 H (75-100) mg/dL Troponin T 0.055 H (0.00-0.029) ng/mL Total Protein 5.9 L (6.3-8.2) g/dL Albumin 3.6 L (3.9-5) g/dL LDL Cholesterol Direct 47 L (50-130) mg/dL Lipase 10 L (13-60) units/L Assessment and Plan - Patient Problems (1) GIB (gastrointestinal bleeding) Current Visit: Yes Status: Acute Qualifiers: GI bleed type/associated pathology: anorectal hemorrhage Qualified Code(s) : K62.5 - Hemorrhage of anus and rectum Plan to address problem: GI consulted in ED, serial cbc, ppi therapy, supportive care. suspect secondary to diverticulosis. (2) Encephalopathy Current Visit: Yes Status: Acute Plan to address problem: CT head, neuro checks, IVF resuscitation, (3) Lung cancer Current Visit: Yes Status: Chronic Plan to address problem: Outpatient Oncology F/U care. (4) Hyperkalemia Current Visit: Yes Status: Acute Plan to address problem: kayexelate, calcium gluconate, repeat bmp, admit to telemetry, No EKG changes. (5) ARF (acute renal failure) Current Visit: No Status: Acute Qualifiers: Acute renal failure type: with acute tubular necrosis Qualified Code(s): N17.0 - Acute kidney failure with tubular necrosis Plan to address problem: IVF resuscitation, monitor uop q shift, nephrology consulted in ED, repeat bmp to monitor for change in serum creatnine. (6) DVT prophylaxis Current Visit: Yes Status: Acute
[2017-11-01] MEDS ORDERED: PROVENTIL IH ONE ×2 (16:18→17:39)
[2017-11-01] MEDS ORDERED: KIONEX PO ONE (16:18)
[2017-11-01] MEDS ORDERED: TYLENOL PO PRN (16:23)
[2017-11-01] MEDS ORDERED: PROVENTIL IH PRN (16:23)
[2017-11-01] MEDS ORDERED: SODIUM CHLORIDE FLUSH SYRINGE 10 ML IV PRN (16:23)
[2017-11-01] MEDS ORDERED: ZOFRAN IV PRN (16:23)
[2017-11-01] MEDS ORDERED: NACL 0.9% 1000 ML 1,000 ML IV ONE (16:31)
[2017-11-01] MEDS: NACL 0.9% 1000 ML 1,000 ML IV ONE ×2 (16:38→17:21)
[2017-11-01] MEDS ORDERED: NACL 0.45% 1000 ML 1,000 ML IV SCH (17:00)
[2017-11-01] MEDS ORDERED: CALCIUM GLUCONATE 1,000 MG in NACL 0.9% 100 ML IV ONE ×2 (17:00→22:00)
[2017-11-01] MEDS ORDERED: NACL 0.45% 2,000 ML IV SCH (17:00)
[2017-11-01] MEDS ORDERED: KIONEX ONE (17:43)
[2017-11-01 18:17] LABS: Calcium 9.2 mg/dL (8.4-10.2)
--- NOTE | 2017-11-01 19:17 | Cat Scan Report ---
FINAL REPORT PROCEDURE: CT HEAD/BRAIN WO CON TECHNIQUE: Computerized tomography of the head was performed without contrast material. HISTORY: confusion COMPARISON: No prior studies are available for comparison. FINDINGS: Brain: There is no evidence of intracranial hemorrhage. No parenchymal hemorrhage is seen. No mass lesions or mass effect is identified. No abnormal extra-axial fluid collections or masses are seen. There is some decreased density seen in the periventricular white matter without mass effect. This is fairly symmetric and does not exhibit any mass effect consistent with gliosis probably on the basis of microvascular disease or white matter changes of aging. Ventricles: The ventricles, sulcal pattern and fissures are prominent consistent with atrophy. Bones: No evidence of acute fracture. There is non fusion of the posterior ring of C1, normal variant. Paranasal sinuses: clear Mastoid air cells: clear IMPRESSION: There is evidence of mild to moderate atrophy and mild gliosis. No acute intracranial abnormalities are identified.
[2017-11-01] MEDS ORDERED: PROVENTIL IH SCH ×2 (20:00)
[2017-11-01] MEDS: PROVENTIL IH SCH (20:30)
[2017-11-01] MEDS: MAGIC MOUTHWASH PO SCH (20:47)
[2017-11-01 21:15] LABS: Calcium 8.9 mg/dL (8.4-10.2)
[2017-11-01] MEDS ORDERED: KIONEX PO NR (21:31)
[2017-11-01] MEDS ORDERED: SODIUM CHLORIDE FLUSH SYRINGE 10 ML IV SCH (22:00)
[2017-11-02] MEDS: PROVENTIL IH SCH ×2 (02:55→08:23)
[2017-11-02 07:50] LABS: Calcium 8.9 mg/dL (8.4-10.2)
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
[2017-11-02] MEDS ORDERED: MIRALAX 3350 PO PRN (09:00)
[2017-11-02] MEDS: MAGIC MOUTHWASH PO SCH ×3 (09:30→21:00)
[2017-11-02] MEDS: LOPRESSOR PO SCH ×2 (09:31→21:50)
[2017-11-02] MEDS: LASIX PO SCH (09:32)
[2017-11-02] MEDS: FLOMAX PO SCH (09:32)
[2017-11-02] MEDS: PROTONIX PO SCH (09:32)
[2017-11-02] MEDS: ROCALTROL PO SCH (09:32)
[2017-11-02] MEDS ORDERED: ELIQUIS PO SCH (10:00)
[2017-11-02] MEDS ORDERED: NON-FORMULARY (Omeprazole [Omeprazole] 40 MG) PO SCH (10:00)
[2017-11-02] MEDS ORDERED: NON-FORMULARY (Fluticasone/Salmeterol [Advair Diskus 500-50 Mcg] 1 PUFF) IH SCH (10:00)
[2017-11-02] MEDS: SYNTHROID PO SCH (10:06)
[2017-11-02] MEDS ORDERED: REGLAN IV PRN (13:37)
[2017-11-02] MEDS: DUONEB *Not for PRN Use IH SCH ×2 (14:40→22:44)
--- NOTE | 2017-11-02 16:23 | Consultation ---
History of Present Illness - History of Present Illness Seen and evaluated known to me CKD / creatinine better in controlled setting Noncomplaince with diet mostly Anemia followed by oncology GI bleed Hyperkalemia better Will follow Past History Past Medical History: arthritis, cancer, COPD, GERD, hypertension, hypothyroidism, pulmonary embolism, renal failure Past Surgical History: bowel surgery Social history: , lives with family. denies: smoking, alcohol abuse, prescription drug abuse Family history: hypertension Medications and Allergies Allergies Allergy/AdvReac Type Severity Reaction Status Date / Time Sulfa (Sulfonamide Allergy Itching Verified 10/22/17 09:22 Antibiotics) Home Medications Medication Instructions Recorded Confirmed Last Taken Type Albuterol Sulfate [Ventolin HFA] 2 puff IH Q4H PRN 01/22/17 10/22/17 06/20/17 History Calcitriol 0.25 mg PO DAILY 01/22/17 10/22/17 06/19/17 History Fluticasone/Salmeterol [Advair 1 puff IH BID 01/22/17 10/22/17 06/20/17 History Diskus 500-50 mcg] Levothyroxine [Synthroid] 50 mcg PO DAILY 01/22/17 10/22/17 06/20/17 History Omeprazole 40 mg PO QAM 01/22/17 10/22/17 06/20/17 History Tamsulosin HCl 0.4 mg PO DAILY 01/22/17 10/22/17 06/20/17 History Tiotropium [Spiriva] 18 mcg IH DAILY 01/22/17 10/22/17 06/20/17 History Apixaban [Eliquis] 5 mg PO BID 06/20/17 10/22/17 06/20/17 History Metoprolol [Lopressor TAB] 12.5 mg PO Q12H 06/20/17 10/22/17 06/20/17 History Furosemide [Lasix TAB] 40 mg PO Q24HR 10/22/17 10/22/17 Unknown History Polyethylene Glycol 3350 [Miralax 1 pack PO DAILY 10/22/17 10/22/17 Unknown History 3350] Vit B Complx C/Folic Acid/Zinc 1 each PO DAILY 10/22/17 10/22/17 Unknown History [Dialyvite 800-Zinc 15 mg Tab] Vit B12/Folic Acid/B6/Aa No.15 1 each PO DAILY 10/22/17 10/22/17 Unknown History [Glycotrol Capsule] Azithromycin [Zithromax Z-NIVIA] 0 mg PO DAILY #1 tab 10/25/17 Unknown Rx Prednisone [predniSONE 10 mg 10 mg PO .TAPER #1 tab.ds.pk 10/25/17 Unknown Rx (6-Day Pack, 21 Tabs)] Active Meds: Active Medications Acetaminophen (Tylenol) 650 mg PO Q4H PRN PRN Reason: Pain MILD(1-3)/Fever >100.5/MAXWELL Last Admin: 11/01/17 22:38 Dose: 650 mg Albuterol (Proventil) 2.5 mg IH Q4HRT PRN PRN Reason: Shortness Of Breath Albuterol/Ipratropium (Duoneb *Not For Prn Use*) 1 ampul IH TIDRT [facility] Last Admin: 11/02/17 14:40 Dose: 1 ampul Arformoterol Tartrate (Brovana Nebu) 15 mcg IH Q12HRT [facility] Budesonide (Pulmicort) 1 mg IH Q12HRT [facility] Calcitriol (Rocaltrol) 0.25 mcg PO DAILY [facility] Last Admin: 11/02/17 09:32 Dose: 0.25 mcg Fluconazole (Diflucan) 200 mg PO QDAY [facility] Furosemide (Lasix) 40 mg PO Q24HR [facility] Last Admin: 11/02/17 09:32 Dose: 40 mg Levothyroxine Sodium (Synthroid) 50 mcg PO 0600 [facility] Last Admin: 11/02/17 10:06 Dose: 50 mcg Lidocaine HCl (Magic Mouthwash) 15 ml PO TID [facility] Last Admin: 11/02/17 14:35 Dose: 15 ml Metoclopramide HCl (Reglan) 10 mg IV Q8H PRN PRN Reason: Nausea And Vomiting Metoprolol Tartrate (Lopressor) 12.5 mg PO Q12H [facility] Last Admin: 11/02/17 09:31 Dose: 12.5 mg Pantoprazole Sodium (Protonix) 40 mg PO DAILY [facility] Last Admin: 11/02/17 09:32 Dose: 40 mg Polyethylene Glycol (Miralax 3350) 17 gm PO DAILY PRN PRN Reason: Constipation Sodium Chloride (Sodium Chloride Flush Syringe 10 Ml) 10 ml IV PRN PRN PRN Reason: LINE FLUSH Tamsulosin HCl (Flomax) 0.4 mg PO DAILY [facility] Last Admin: 11/02/17 09:32 Dose: 0.4 mg Exam - Vital Signs Vital signs: Vital Signs Temp Pulse Resp BP Pulse Ox 98.2 F 103 H 20 128/53 98 11/01/17 12:44 11/01/17 12:44 11/01/17 12:44 11/01/17 12:44 11/01/17 12:44 Results - Lab Results 11/01/17 14:35 11/02/17 06:54 Most recent lab results Calcium 8.9 mg/dL (8.4-10.2) 11/02/17 06:54
[2017-11-02] MEDS: DIFLUCAN PO SCH (16:47)
[2017-11-02] MEDS: PULMICORT IH SCH (22:43)
[2017-11-02] MEDS: BROVANA NEBU IH SCH (22:44)
[2017-11-03] MEDS: SYNTHROID PO SCH (06:50)
--- NOTE | 2017-11-03 09:00 | Progress Note ---
Subjective Interval history: Patient was seen today for follow-up, on many renal related issues Patient currently denies having any symptoms of chest pain pressure shortness of breath Better aware about renal related issues Interdisciplinary notes were reviewed Vitals labs intake and output medications were reviewed from today Allergies: Reviewed Social history: Reviewed Family history: Reviewed Physical examination HEENT: Oral mucosa moist no pharyngeal erythema Neck: Supple no JVD Chest: Clear to auscultation no crackles rales or wheezes Heart: Regular rate and rhythm S1-S2 heard no S3-S4 Abdomen: Soft nontender no renal bruit no CVA tenderness no suprapubic fullness Extremity: Mild edema dry skin no peripheral cyanosis pulses palpable Neurological: Alert awake Musculoskeletal: No joint effusion noted Assessment and plan acute and chronic renal failure renal function much better in the structured setting: Highly suspicious for noncompliance at home Hyperkalemia patient advised to take Kayexalate 3 times a week now follow a strict low potassium diet Hypertension and volume appears to be stable had a detailed discussion with patient as well as his at the bedside Advised patient to follow a strict diet plan: He gets very upset to hear about it Advised him to follow-up with primary care physician for although there needs he can see me in the office for follow-up in a week or 2 upon discharge All questions were discussed with patient as well as his at length Will continue to follow and make recommendation from renal standpoint Objective - Vital Signs Vital signs: Vital Signs - 12hr 11/02/17 11/02/17 11/02/17 21:50 22:00 22:05 Temperature 98.2 F Pulse Rate 115 H Pulse Rate [ Posterior Bilateral Throughout] Respiratory Rate Respiratory Rate [Posterior Bilateral Throughout] Blood Pressure 114/48 O2 Sat by Pulse 97 Oximetry 11/02/17 11/02/17 11/03/17 22:45 23:00 01:00 Temperature Pulse Rate 96 H Pulse Rate [ 104 H 100 H Posterior Bilateral Throughout] Respiratory Rate Respiratory 13 12 Rate [Posterior Bilateral Throughout] Blood Pressure O2 Sat by Pulse Oximetry 11/03/17 11/03/17 11/03/17 01:20 04:46 08:04 Temperature 98.2 F 97.7 F 97.7 F Pulse Rate 89 79 86 Pulse Rate [ Posterior Bilateral Throughout] Respiratory 20 20 18 Rate Respiratory Rate [Posterior Bilateral Throughout] Blood Pressure 102/46 127/54 128/51 O2 Sat by Pulse 99 97 98 Oximetry - Lab 11/03/17 09:26 11/03/17 09:26 Most recent lab results Calcium 8.9 mg/dL (8.4-10.2) 11/02/17 06:54
[2017-11-03 09:42] LABS: Hemoglobin 9.7 gm/dl (11.8-15.2); Mean Corpuscular HGB Conc 33 % (32-34); Mean Corpuscular Hemoglobin 29 pg (28-32); Mean Corpuscular Volume 88 fl (84-94); Platelet Count 155 K/mm3 (140-440); Red Blood Count 3.33 M/mm3 (3.65-5.03)
[2017-11-03 09:50] LABS: Hematocrit 29.3 % (35.5-45.6)
[2017-11-03] MEDS: MAGIC MOUTHWASH PO SCH ×2 (10:00→14:43)
[2017-11-03] MEDS: ROCALTROL PO SCH (10:01)
[2017-11-03] MEDS: PROTONIX PO SCH (10:02)
[2017-11-03] MEDS: FLOMAX PO SCH (10:02)
[2017-11-03] MEDS: LASIX PO SCH (10:03)
[2017-11-03] MEDS: LOPRESSOR PO SCH (10:20)
[2017-11-03 10:36] LABS: Calcium 8.2 mg/dL (8.4-10.2)
[2017-11-03] MEDS: DUONEB *Not for PRN Use IH SCH ×2 (11:28→14:32)
[2017-11-03] MEDS: PULMICORT IH SCH (11:29)
[2017-11-03] MEDS: BROVANA NEBU IH SCH (11:29)
--- NOTE | 2017-11-03 11:38 | Discharge Summary ---
Providers - Providers Date of Admission: 11/01/17 16:23 Date of discharge: 11/03/17 Attending physician: DEBORAH YANEZ 11/01/17 19:26 Consult to Physician [CONS] Routine Consulting Provider: SHUN AZEVEDO Reason For Exam: ARF/CKD Place consult to:: RENAL Notified:: OFFICE Phone number called:: [phone] Was contact made?: Yes If yes, spoke with:: MCKENNA Time called:: 09:18 11/02/17 11:20 Consult to Wound/ET Nurse [CONS] Urgent Reason For Exam: wound eval wound to buttocks on admission Primary care physician: PHOTOSTAT OPERATOR HELPER Hospitalization Condition: Stable Hospital course: Original Note: Assessment and Plan Assessment and plan: Patient is a 81 yo man with Stage 3 NSCLC RLL s/p xrt, Chronic Respiratory Failure on Home Oxygen, PE not on Eliquis anymore, Dr. MEDRANO stopped the medication last Thursday (completed treatment per ), HTN, COPD, OA, GERD, BPH, CKD 3 and Hypothyroidism who presented to ED with AMS and reports of rectal bleeding. He was just discharged from here on 10/25/17 for COPD exacerabation. - GIB (gastrointestinal bleeding): GI consulted in ED, serial cbc, ppi therapy, supportive care. suspect secondary to diverticulosis. - Acute Encephalopathy: CT head, neuro checks, IVF resuscitation, - Lung cancer, ?stage: Outpatient Oncology F/U care with Dr MEDRANO. - Hyperkalemia: treat with kayexelate, calcium gluconate, repeat bmp, admit to telemetry, No EKG changes. - ARF/CKD 3 (acute renal failure), vasomotor nephrology with possible acute tubular necrosis: treat with IVF resuscitation, monitor uop q shift, nephrology consulted in ED, repeat bmp to monitor for change in serum creatnine. - DVT prophylaxis: hold a/c due to rectal bleeding - H/o PE off anticoagulation per Dr. MEDRANO, - Chronic hypoxic respiratory failure: continue O2, followed by Dr. Baker as outpatient -Odynophagia, has oral thrush/Candidiasis: treat with diflucan -Constipation: GI consulted, needs good BM regimen d/w Dr. MEDRANO's nurse, pt has stage 3 NSCLC RLL s/p xrt, completed coarse of Eliquis and placed on baby aspirin, last Thursday. No more signs of bleeding with bowel movement yesterday, will discharge home. Disposition: DC-01 TO HOME OR SELFCARE Time spent for discharge: 32 minutes Core Measure Documentation - Palliative Care Palliative Care/ Comfort Measures: Not Applicable - Core Measures Any of the following diagnoses?: none - VTE Discharge Requirements Deep Vein Thrombosis/Pulmonary Embolism Present on Admission: No Has pt received <5 days of overlap therapy or INR<2.0: No Anticoagulant overlap therapy prescribed at discharge: No Contraindication No Overlap Therapy order at DC: Not Indicated Exam - Physical Exam Narrative exam: GEN: Chronically debilitated, ill-appearing in no acute distress on oxygen awake alert oriented HEENT: NCAT, EOMI, PERRL, OP thrush NECK: supple, no adenopathy, no thyromegaly, no JVD CVS/HEART: Tachycardic NORMAL S1S2, pulses present bilaterally CHEST/LUNGS: Diminished breath sounds bilaterally, Symmetrical chest expansion, good air entry bilaterally GI/Abdomen: soft, NTND, good bowel sounds, no guarding or rebound /Bladder: no suprapubic tenderness, no CVA or paraspinal tenderness EXT/Skin: no gross edema, no obvious rash MSK: FROM x 4 Neuro: CN 2-12 grossly intact, no new focal deficits Psych: calm - Constitutional Vitals: Temp Pulse Resp BP Pulse Ox 97.7 F 79 18 134/50 98 11/03/17 08:04 11/03/17 10:20 11/03/17 08:04 11/03/17 10:20 11/03/17 10:00 Plan Activity: other (no strenous activities) Diet: regular Follow up with: PRIMARY CAREMD [Primary Care Provider] - 3-5 Days PHILIPPE FREITAS MD [Staff Physician] - 7 Days Prescriptions: Aspirin [Aspir-Low] 81 mg PO DAILY #30 tablet. Fluconazole [Diflucan TAB] 200 mg PO QDAY #10 day Nystas/Diphen/Xyl Visc/Mylanta [Magic Mouthwash] 15 ml PO TID PRN #7 oral.liqd PRN Reason: Mouth Pain Polyethylene Glycol 3350 [Miralax 3350] 17 gm PO DAILY #30 powd.pack Ipratropium/Albuterol Sulfate [DUONEB *Not for PRN Use*] 1 ampul IH TIDRT #30 ampul.neb
[2017-11-03 12:12] VITALS: BP 131/49
[2017-11-03] MEDS: DIFLUCAN PO SCH (14:36)
== END 2017-11-03 16:00 | disposition home health service (06) | DRG 377 ==
LOC: ED 12:38 → 4A 16:23
PROVIDERS: ADMIT Internal Medicine; ATTEND Internal Medicine
DX: K57.91 Diverticulosis of intestine, part unspecified, without perforation or abscess with bleeding (principal); N17.0 Acute kidney failure with tubular necrosis; G93.40 Encephalopathy, unspecified; J96.11 Chronic respiratory failure with hypoxia; K21.9 Gastro-esophageal reflux disease without esophagitis; K59.00 Constipation, unspecified; E11.22 Type 2 diabetes mellitus with diabetic chronic kidney disease; N18.3 Chronic kidney disease, stage 3 (moderate); N40.0 Benign prostatic hyperplasia without lower urinary tract symptoms; R13.10 Dysphagia, unspecified; I12.9 Hypertensive chronic kidney disease with stage 1 through stage 4 chronic kidney disease, or unspecified chronic kidney disease; E87.5 Hyperkalemia; E03.9 Hypothyroidism, unspecified; I25.2 Old myocardial infarction; Z86.711 Personal history of pulmonary embolism; Z79.01 Long term (current) use of anticoagulants; Z95.0 Presence of cardiac pacemaker; Z85.118 Personal history of other malignant neoplasm of bronchus and lung; Z79.82 Long term (current) use of aspirin; Z79.899 Other long term (current) drug therapy; Z88.2 Allergy status to sulfonamides; Z82.49 Family history of ischemic heart disease and other diseases of the circulatory system; Z91.14 Patient's other noncompliance with medication regimen
CPT/HCPCS: 36415; 70450; 74019; 80048; 80053; 80061; 82271; 83690; 84132; 84484; 85025; 85027; 85610; 85730; 86850; 86900; 86901; 93005; 93010; 94640; 94760; 96374; J0610

== ENCOUNTER 2017-11-16 10:45 | Emergency (ER) | payer MEDICARE ==
[2017-11-16 11:43] LABS: Basophils % (Auto) 0.2 % (0.0-1.8); Eosinophils # (Auto) 0.1 K/mm3 (0.0-0.4); Eosinophils % (Auto) 1.2 % (0.0-4.3); Hematocrit 30.6 % (35.5-45.6); Hemoglobin 10.1 gm/dl (11.8-15.2); Lymphocytes # (Auto) 0.3 K/mm3 (1.2-5.4); Lymphocytes % (Auto) 4.5 % (13.4-35.0); Mean Corpuscular HGB Conc 33 % (32-34); Mean Corpuscular Hemoglobin 30 pg (28-32); Mean Corpuscular Volume 89 fl (84-94); Monocytes # (Auto) 0.5 K/mm3 (0.0-0.8); Monocytes % (Auto) 7.4 % (0.0-7.3); Platelet Count 286 K/mm3 (140-440); Red Blood Count 3.42 M/mm3 (3.65-5.03)
[2017-11-16 12:00] LABS: Red Cell Distribution Width 21.5 % (13.2-15.2)
[2017-11-16 12:25] LABS: Bacteria,Urine 3+ /HPF (Negative); Bilirubin,Urine NEG (Negative); Blood,Urine SM (Negative); Color,Urine Yellow (Yellow); Hyaline Casts,Urine 1 /LPF; Mucus,Urine FEW /HPF; Protein,Urine <15 mg/dL mg/dL (Negative); Urobilinogen,Urine < 2.0 mg/dL (<2.0)
--- NOTE | 2017-11-16 12:33 | Emergency Department Report ---
HPI - General Chief Complaint: Medical Clearance Time Seen by Provider: 11/16/17 11:38 - HPI HPI: 81-year-old male presents to the emergency department, sent in by his PCP Dr. Pizarro, for the complaint of elevated potassium level. Allegedly the patient had some blood work done from a few days ago that showed a potassium level of 6 and he was sent in for further evaluation and treatment. The patient was recently admitted and then discharged from [facility] after he was here for some altered mental status, GI bleed, acute kidney injury/ failure and hyperkalemia. Currently the patient says he is physically at his baseline and has no new complaints other than this abnormal lab. Patient does have a history of COPD, BPH, HTN, OA, Hypothyroidism, Lung Ca. he has been followed by Dr. Castillo for nephrology for his renal insufficiency and was followed by him in the hospital for the hyperkalemia, which resolved prior to discharge. The patient has been on some Kayexalate for his recent hyperkalemia including at home, prescribed by Dr. Castillo. ED Past Medical Hx - Past Medical History Hx Hypertension: Yes Hx Heart Attack/AMI: No (no known coronary artery disease) Hx Congestive Heart Failure: No Hx Diabetes: No Hx Pulmonary Embolism: Yes Hx GERD: Yes (diagnosed Fall 2016) Hx Arthritis: Yes Hx Seizures: No Hx Asthma: No Hx COPD: Yes Hx Dementia: No Hx HIV: No Additional medical history: hypothyroidism,enlarged prostate - Surgical History Hx Pacemaker: No Additional Surgical History: colon blockage 2007,colostomy reversal in 2008 - Social History Smoking Status: Never Smoker Substance Use Type: None - Medications Home Medications: Home Medications Medication Instructions Recorded Confirmed Last Taken Type Calcitriol 0.25 mg PO DAILY 01/22/17 10/22/17 06/19/17 History Omeprazole 40 mg PO QAM 01/22/17 10/22/17 06/20/17 History Tamsulosin HCl 0.4 mg PO DAILY 01/22/17 10/22/17 06/20/17 History Vit B Complx C/Folic Acid/Zinc 1 each PO DAILY 10/22/17 10/22/17 Unknown History [Dialyvite 800-Zinc 15 mg Tab] Vit B12/Folic Acid/B6/Aa No.15 1 each PO DAILY 10/22/17 10/22/17 Unknown History [Glycotrol Capsule] Acetaminophen [Acetaminophen TAB] 650 mg PO Q4H PRN #15 tablet 11/03/17 Unknown Rx Albuterol Sulfate [Ventolin HFA] 2 puff IH Q4H PRN #1 11/03/17 10/22/17 Rx Aspirin [Aspir-Low] 81 mg PO DAILY #30 tablet. 11/03/17 Unknown Rx Fluconazole [Diflucan TAB] 200 mg PO QDAY #10 day 11/03/17 Unknown Rx Fluticasone/Salmeterol [Advair 1 puff IH BID #1 11/03/17 10/22/17 06/20/17 Rx Diskus 500-50 mcg] Furosemide [Lasix TAB] 40 mg PO Q24HR #30 11/03/17 10/22/17 Unknown Rx Ipratropium/Albuterol Sulfate 1 ampul IH TIDRT #30 ampul.neb 11/03/17 Unknown Rx [DUONEB *Not for PRN Use*] Levothyroxine [Synthroid] 50 mcg PO DAILY #30 11/03/17 10/22/17 06/20/17 Rx Metoprolol [Lopressor TAB] 12.5 mg PO Q12H #30 11/03/17 10/22/17 06/20/17 Rx Nystas/Diphen/Xyl Visc/Mylanta 15 ml PO TID PRN #7 oral.liqd 11/03/17 Unknown Rx [Magic Mouthwash] Polyethylene Glycol 3350 [Miralax 17 gm PO DAILY #30 powd.pack 11/03/17 Unknown Rx 3350] ED Review of Systems ROS: Stated complaint: HIGH POTASSIUM Other details as noted in HPI Comment: All other systems reviewed and negative Constitutional: denies: chills, fever Eyes: denies: eye pain, eye discharge, vision change ENT: denies: ear pain, throat pain Respiratory: denies: cough, shortness of breath, wheezing Cardiovascular: denies: chest pain, palpitations Gastrointestinal: denies: abdominal pain, nausea, diarrhea Genitourinary: denies: urgency, dysuria Musculoskeletal: denies: back pain, joint swelling, arthralgia Skin: denies: rash, lesions Neurological: denies: headache, weakness, paresthesias Physical Exam - Physical Exam Vital Signs: Vital Signs 11/16/17 11/16/17 10:54 12:08 Temperature 97.8 F Pulse Rate 112 H Respiratory 22 Rate Blood Pressure 123/53 O2 Sat by Pulse 94 94 Oximetry Physical Exam: GENERAL: The patient is well-developed well-nourished. HENT: Normocephalic. Atraumatic. Patient has moist mucous membranes. EYES: Extraocular motions are intact. Pupils equal reactive to light bilaterally. NECK: Supple. Trachea is midline. CHEST/LUNGS: Clear to auscultation. There is no respiratory distress noted. HEART/CARDIOVASCULAR: Regular. There is mild tachycardia. There is no murmur. ABDOMEN: Abdomen is soft, nontender. Patient has normal bowel sounds. There is no abdominal distention. SKIN: Skin is warm and dry. NEURO: The patient is awake, alert. The patient is cooperative. The patient has no focal neurologic deficits. The patient has normal speech. MUSCULOSKELETAL: There is no tenderness or deformity. There is no evidence of acute injury. ED Course Vital Signs 11/16/17 11/16/17 10:54 12:08 Temperature 97.8 F Pulse Rate 112 H Respiratory 22 Rate Blood Pressure 123/53 O2 Sat by Pulse 94 94 Oximetry ED Medical Decision Making - Lab Data Result diagrams: 11/16/17 11:06 11/16/17 11:06 - Medical Decision Making The patient was sent in as he had some recent blood work that showed hyperkalemia with potassium of 6. Today his potassium is 4.6. The rest of the CBC and metabolic panel are unremarkable. His urinalysis does show a urinary tract infection but he was also recently diagnosed with this and is only on his second day of antibiotics as prescribed by his PCP. I spoke with Dr Rodriguez, supervisor money room for Dr Lopez, to let them know of the potassium level here and the plan to discharge home for follow-up with them and the drywaller. He agrees with that plan. All the labs were discussed with the patient and his family and the plan for discharge home and they understand and agree. He will return to the ER with any worsening of symptoms or any acute distress. Critical Care Time: No Critical care attestation.: If time is entered above; I have spent that time in minutes in the direct care of this critically ill patient, excluding procedure time. ED Disposition Clinical Impression: UTI (urinary tract infection) Qualifiers: Urinary tract infection type: acute cystitis Hematuria presence: without hematuria Qualified Code(s): N30.00 - Acute cystitis without hematuria CKD (chronic kidney disease) Qualifiers: Chronic kidney disease stage: unspecified stage Qualified Code(s): N18.9 - Chronic kidney disease, unspecified Disposition: TO HOME OR SELFCARE Is pt being admited?: No Condition: Stable Instructions: Urinary Tract Infection in Men (ED), Chronic Kidney Disease (ED) Additional Instructions: He was seen today as there was concern for an elevated potassium level. Her potassium level today was 4.6 which falls in the normal range. Please follow- up with your primary care physician, Dr. Lopez, and your drywaller, Dr. Castillo. Continue with the antibiotics for your urinary tract infection. Return to the emergency department with any worsening of your symptoms or any acute distress. Referrals: NIKKI OGDEN MD [Staff Physician] - 3-5 Days SHUN CASTILLO MD [Staff Physician] - 3-5 Days Time of Disposition: 13:27
[2017-11-16 13:43] VITALS: BP 121/58
== END 2017-11-16 13:43 | disposition home or self-care (01) ==
LOC: ED 10:45
DX: N30.00 Acute cystitis without hematuria (principal); I12.9 Hypertensive chronic kidney disease with stage 1 through stage 4 chronic kidney disease, or unspecified chronic kidney disease; N18.9 Chronic kidney disease, unspecified; E87.5 Hyperkalemia; K21.9 Gastro-esophageal reflux disease without esophagitis; J44.9 Chronic obstructive pulmonary disease, unspecified; E03.9 Hypothyroidism, unspecified; Z93.3 Colostomy status; Z88.2 Allergy status to sulfonamides
CPT/HCPCS: 36415; 80048; 81001; 85025; 87086; 99283

== ENCOUNTER 2018-05-06 10:35 | Outpatient (CLI) | payer MEDICARE ==
[2018-05-06 11:11] LABS: Protein/Creatinine Ratio,Urine 0.53
[2018-05-06 11:24] LABS: Albumin 3.2 g/dL (3.9-5); Calcium 8.4 mg/dL (8.4-10.2); Uric Acid 8.2 mg/dL (3.5-7.6)
== END 2018-05-06 10:36 | disposition home or self-care (01) ==
LOC: LAB 10:35
PROVIDERS: ATTEND Internal Medicine Nephrology
DX: I12.9 Hypertensive chronic kidney disease with stage 1 through stage 4 chronic kidney disease, or unspecified chronic kidney disease (principal); N18.3 Chronic kidney disease, stage 3 (moderate); R30.0 Dysuria; E87.5 Hyperkalemia; E55.9 Vitamin D deficiency, unspecified; R80.9 Proteinuria, unspecified; R31.9 Hematuria, unspecified; D63.1 Anemia in chronic kidney disease; K21.9 Gastro-esophageal reflux disease without esophagitis; M19.90 Unspecified osteoarthritis, unspecified site; E03.9 Hypothyroidism, unspecified; N25.81 Secondary hyperparathyroidism of renal origin; J44.9 Chronic obstructive pulmonary disease, unspecified; Z87.891 Personal history of nicotine dependence
CPT/HCPCS: 36415; 80048; 82040; 82570; 83970; 84100; 84156; 84550

== ENCOUNTER 2018-05-16 19:58 | Inpatient (IN) | payer MEDICARE ==
[2018-05-16] MEDS ORDERED: LASIX IV ONE (22:26)
[2018-05-16] MEDS ORDERED: DUONEB *Not for PRN Use IH ONE (22:26)
[2018-05-16] MEDS ORDERED: SOLU-Medrol IV ONE (22:26)
--- NOTE | 2018-05-16 22:32 | Emergency Department Report ---
HPI - General Chief Complaint: Dyspnea/Respdistress Time Seen by Provider: 05/16/18 22:00 - HPI HPI: Patient is a 82-year-old male with a significant history of heart disease, lung cancer and COPD, who presents for evaluation of dyspnea. The patient reports worsening dyspnea from baseline for the past 2-3 days, severe, exacerbated with activity, improved with sitting up at rest, and associated with a nonproductive cough. Patient also admits to some mild bilateral lower extremity leg swelling. ED Past Medical Hx - Past Medical History Previous Medical History?: Yes Hx Hypertension: Yes Hx Heart Attack/AMI: No (no known coronary artery disease) Hx Congestive Heart Failure: No Hx Diabetes: No Hx Pulmonary Embolism: Yes Hx GERD: Yes (diagnosed Fall 2016) Hx Arthritis: Yes Hx Seizures: No Hx Asthma: No Hx COPD: Yes Hx Dementia: No Hx HIV: No Additional medical history: hypothyroidism,enlarged prostate - Surgical History Past Surgical History?: Yes Hx Pacemaker: No Additional Surgical History: colon blockage 2007,colostomy reversal in 2008 - Social History Smoking Status: Never Smoker Substance Use Type: None - Medications Home Medications: Home Medications Medication Instructions Recorded Confirmed Last Taken Type Calcitriol 0.25 mg PO DAILY 01/22/17 12/19/17 12/18/17 History 0.25 Omeprazole 40 mg PO QAM 01/22/17 12/19/17 12/18/17 History 40 mg Tamsulosin HCl 0.4 mg PO DAILY 01/22/17 12/19/17 12/18/17 History 0.4 mg Vit B Complx C/Folic Acid/Zinc 1 each PO DAILY 10/22/17 12/19/17 12/18/17 History [Dialyvite 800-Zinc 15 mg Tab] 1 tab Acetaminophen [Acetaminophen TAB] 650 mg PO Q4H PRN #15 tablet 11/03/1712/18/17 Rx 2 tabs Albuterol Sulfate [Ventolin HFA] 2 puff IH Q4H PRN #1 11/03/17 12/19/17 Rx 2 Aspirin [Aspir-Low] 81 mg PO DAILY #30 tablet. 11/03/17 12/19/17 12/18/17 Rx 81 mg Fluticasone/Salmeterol [Advair 1 puff IH BID #1 0312/19/17 12/18/17 Rx Diskus 500-50 mcg] 1 Furosemide [Lasix TAB] 40 mg PO Q24HR #30 11/03/17 12/19/17 12/18/17 Rx 40 mg Ipratropium/Albuterol Sulfate 1 ampul IH TIDRT #30 ampul.neb 11/03/17 12/19/17 12/18/17 Rx [DUONEB *Not for PRN Use*] 1 Levothyroxine [Synthroid] 50 mcg PO DAILY #30 11/03/17 12/19/17 12/18/17 Rx 50 mcg Polyethylene Glycol 3350 [Miralax 17 gm PO DAILY #30 powd.pack 11/03/1712/18/17 Rx 3350] 17 gm hydrOXYzine pamoate [Hydroxyzine 1 tab PO Q8H MDD 25 mg 12/19/17 12/19/17 History Pamoate] 25 mg Carvedilol [Coreg] 6.25 mg PO BID #60 tablet 12/24/17 Unknown Rx Fluconazole [Diflucan TAB] 200 mg PO QDAY #7 day 12/24/17 Unknown Rx Linezolid [Zyvox] 600 mg PO Q12HR #14 tablet 12/24/17 Unknown Rx ED Review of Systems ROS: Stated complaint: EDMUNDO Other details as noted in HPI Constitutional: denies: fever ENT: denies: throat or neck pain Respiratory: reports cough, shortness of breath Cardiovascular: denies: chest pain Endocrine: denies unexplained weight loss or gain Gastrointestinal: denies: abdominal pain, nausea Genitourinary: denies: dysuria Musculoskeletal: denies: leg swelling Skin: denies: rash Neurological: denies: headache Hematological/Lymphatic: denies: easy bleeding or easy bruising Psych: denies sadness or hopelessness Physical Exam - Physical Exam Vital Signs: Vital Signs 05/16/18 05/16/18 21:54 22:04 Temperature 98.4 F 98.4 F Pulse Rate 98 H 98 H Respiratory 18 18 Rate Blood Pressure 134/64 Blood Pressure 137/57 [Left] O2 Sat by Pulse 98 98 Oximetry Physical Exam: General: well-nourished, well-developed, no acute distress Head: Normocephalic, atraumatic Eyes: normal sclera ENT: Mucous membranes are pink and moist Neck: trachea midline, neck supple, No neck stiffness, no cervical adenopathy Respiratory: Diminished breath sounds and wheezing present on lung baker bilaterally, mild bibasilar rhonchi present, mild costal retractions, not in resp distress at this time Cardio: S1 and S2 present, no murmurs, rubs, gallops, capillary refill is brisk Abdomen: Normoactive bowel sounds, soft abdomen, no rigidity, no guarding or rebound tenderness Musc: 1+ pitting edema of bilateral lower legs Skin: No rash Neuro: no facial drooping, normal speech Psych: Normal affect ED Course Vital Signs 05/16/18 05/16/18 21:54 22:04 Temperature 98.4 F 98.4 F Pulse Rate 98 H 98 H Respiratory 18 18 Rate Blood Pressure 134/64 Blood Pressure 137/57 [Left] O2 Sat by Pulse 98 98 Oximetry ED Medical Decision Making - Lab Data Result diagrams: 05/16/18 22:31 05/16/18 22:31 - Medical Decision Making The patient was seen and examined by myself. The patient is placed on a equipment monitor phototypesetting and continuous pulse ox. On initial evaluation, the patient was found to be in no distress. Evaluation orders were placed. The patient is given a breathing treatment and steroids for txt of COPD. x-ray of the chest reveals right middle lobe infiltrate versus atelectasis concerning for pneumonia , and bilateral pleural fibrosis. The patient given IV Lasix for treatment of edema, and IV Rocephin and Levaquin for treatment of suspected pneumonia. Lab results revealed elevated BNP and troponin, chronic for the patient. The on- call hospitalist service was contacted. They agreed to admit the patient for further treatment and close monitoring. The ED admit order was placed. The patient was admitted in guarded condition. Critical care attestation.: If time is entered above; I have spent that time in minutes in the direct care of this critically ill patient, excluding procedure time. ED Disposition Clinical Impression: COPD exacerbation Pneumonia Qualifiers: Pneumonia type: due to unspecified organism Laterality: right Lung location: middle lobe of lung Qualified Code(s): J18.1 - Lobar pneumonia, unspecified organism Disposition: OP ADMIT IP TO THIS HOSP Is pt being admited?: Yes Does the pt Need Aspirin: Yes Condition: Fair Instructions: Chronic Obstructive Pulmonary Disease (ED), Bacterial Pneumonia ( ED) Referrals: PRIMARY CARE, [Primary Care Provider] - 3-5 Days Time of Disposition: 22:33
[2018-05-16 22:42] LABS: Basophils % (Auto) 0.2 % (0.0-1.8); Eosinophils # (Auto) 0.2 K/mm3 (0.0-0.4); Eosinophils % (Auto) 1.6 % (0.0-4.3); Hematocrit 35.1 % (35.5-45.6); Hemoglobin 11.7 gm/dl (11.8-15.2); Lymphocytes # (Auto) 0.3 K/mm3 (1.2-5.4); Lymphocytes % (Auto) 3.3 % (13.4-35.0); Mean Corpuscular HGB Conc 33 % (32-34); Mean Corpuscular Hemoglobin 33 pg (28-32); Mean Corpuscular Volume 99 fl (84-94); Monocytes # (Auto) 1.4 K/mm3 (0.0-0.8); Monocytes % (Auto) 14.4 % (0.0-7.3); Platelet Count 232 K/mm3 (140-440); Red Blood Count 3.56 M/mm3 (3.65-5.03); Red Cell Distribution Width 19.2 % (13.2-15.2)
--- NOTE | 2018-05-16 22:50 | XRay Report ---
FINAL REPORT PROCEDURE: Chest. TECHNIQUE: Portable AP view. HISTORY: Dyspnea. COMPARISON: Chest 12/18/2017. FINDINGS: The heart and mediastinum appear normal. There is calcification in the thoracic aorta. There is fibrotic scarring in both upper lobes that causes elevation of the gracie. There is apical pleural thickening bilaterally, worse on the right. The left lung is hyperinflated consistent with COPD. There is some focal opacity in the right midlung that appears denser than on the previous study. This could represent focal pneumonia or worsening fibrosis. I cannot completely exclude a developing mass however. I would recommend a CT scan of the chest with intravenous contrast for further evaluation. There is some fibrotic change at the right lung base with tenting of the diaphragm. There are no definite pleural effusions. The soft tissues are unremarkable. There is a mild thoracic scoliosis. IMPRESSION: Fibrotic scarring and COPD, unchanged. Increasing opacity in the right midlung as discussed above. Further evaluation recommended.
[2018-05-16 23:07] LABS: Albumin 3.3 g/dL (3.9-5); Calcium 9.1 mg/dL (8.4-10.2)
[2018-05-17] MEDS ORDERED: LEVAQUIN 500MG/100ML 500 MG/100 ML BAG IV ONE (00:03)
[2018-05-17] MEDS ORDERED: ROCEPHIN/NS 1 GM/50 ML 1 GM/50 ML BAG IV ONE (00:03)
[2018-05-17] MEDS ORDERED: ROBITUSSIN PO PRN (01:46)
[2018-05-17] MEDS ORDERED: ZOFRAN IV PRN (01:48)
[2018-05-17] MEDS ORDERED: TYLENOL PO PRN (01:48)
[2018-05-17] MEDS: VISTARIL PO SCH ×2 (03:07→10:35)
--- NOTE | 2018-05-17 05:00 | History and Physical Report ---
CHIEF COMPLAINT: Shortness of breath. HISTORY OF PRESENT ILLNESS: The patient is an 82-year-old male, who has been having shortness breath going on for about 2-3 days. The patient said the symptoms became progressively worse. The patient has a past history of lung cancer and said the shortness of breath increases with activities and improves with rest and sitting and symptom is associated with nonproductive cough. There is no history of fever or chills. No history of nausea or vomiting and also the patient admitted to having some lower extremity swelling. There is no history of dizziness. PAST MEDICAL HISTORY: Pertinent for hypertension, pulmonary embolism. There is past medical history of gastroesophageal reflux disease, arthritis, COPD, hypothyroidism and enlarged prostate. PAST SURGICAL HISTORY: Pertinent for colon blockage in 2007 with colostomy done and reversal in 2008. FAMILY HISTORY: Noncontributory. SOCIAL HISTORY: The patient does not smoke, does not drink alcohol and does not use illicit drugs. MEDICATIONS: The patient is on Calcitriol 0.25 mcg by mouth daily, omeprazole 40 mg by mouth in the morning, tamsulosin 0.4 mg by mouth daily, vitamin B complex with folic acid 1 by mouth daily. Also, the patient is on Tylenol 650 mg by mouth every 4 hours as needed for fever and headache and albuterol sulfate inhaler 2 puffs every 4 hours as needed for shortness of breath. Also, the patient is on 81 mg by mouth daily, Advair Diskus 500/50 mcg one puff inhalation twice daily. The patient is also on Lasix 40 mg by mouth daily and DuoNeb nebulizer 3 times daily. The patient is also on Synthroid 50 mcg by mouth daily, MiraLax 17 grams by mouth daily as well as hydroxyzine pamoate 25 mg 1 by mouth every 8 hours. The patient is also on Coreg 6.25 mg by mouth twice daily, Diflucan 200 mg by mouth daily and linezolid 600 mg by mouth every 12 hours. ALLERGIES: THE PATIENT IS ALLERGIC TO SULFONAMIDE DRUGS. REVIEW OF SYSTEMS: CONSTITUTIONAL: There is no fever, no chills. No diaphoresis. HEENT: There is no headache or sore throat. CARDIOVASCULAR: There is no chest pain or orthopnea. RESPIRATORY: Shortness of breath present. Cough is present. GASTROINTESTINAL SYSTEM: There is no nausea, no vomiting, no abdominal pain, diarrhea or constipation. NEUROLOGICAL: There is no numbness, no dizziness, no altered mental status. MUSCULOSKELETAL: There is no joint pain or swelling. DERMATOLOGICAL SYSTEM: There is no skin rash or itching. GENITOURINARY SYSTEM: There is no dysuria, hematuria or flank pain. Rest of system review is normal. PHYSICAL EXAMINATION: GENERAL: At the time of exam, the patient was found to be alert, oriented x 3 and not in acute distress. VITAL SIGNS: At the initial time of presentation shows temperature of 98.4 degrees Fahrenheit, pulse of 98, respirations 18, blood pressure 137/57, O2 sat of 98% on oxygen. HEENT: Showed pupils to be equal, round, reactive to light and accommodating. Extraocular muscles are intact. NECK: Supple with no JVD or carotid bruit. CARDIOVASCULAR: Showed normal first and second heart sounds with no gallops or murmur. RESPIRATORY: Show reduced air entry on both sides of the lung with bilateral crackles, more on the right than the left and also the patient has respiratory wheezing. GASTROINTESTINAL: Show abdomen to be full, soft, nontender with no organomegaly or rigidity. NEUROLOGIC: Shows no focal deficit. MUSCULOSKELETAL SYSTEM: Show no joint swelling or tenderness. DERMATOLOGICAL SYSTEM: Show no skin rash. GENITOURINARY: Showing no costovertebral angle tenderness. PERTINENT LABS AND IMAGING STUDIES: The patient has chest x-ray done and chest x-ray shows fibrotic scarring and COPD, which is unchanged from previous seen and radiologist say there is increasing opacity in the right mid lung as discussed, which he says could be due to focal pneumonia or worsening fibrosis. LABORATORY RESULTS: The patient has CBC done with normal white count, low hemoglobin of 11.7, low hematocrit of 35.1 with CBC differential showing elevated segmented neutrophils of 80.5% with chemistry shows high BUN of 26, elevated troponin level of 0.083 and elevated brain natriuretic peptide of 4863. The patient's albumin level was low with a value of 3.3. DIAGNOSES: 1. Chronic obstructive pulmonary disease exacerbation. 2. Right middle lobe opacity. 3. Elevated troponin level. PLAN: 1. The patient will be admitted to telemetry. 2. The patient will have cardiac enzyme involving troponin, total CK, and CK-MB checked q. 6 hours x 2 more levels. 3. The patient will be on IV Levaquin 750 mg daily. 4. The patient will be on IV Solu-Medrol 60 mg q. 8 hours. 5. The patient will be on DuoNeb nebulizer q.i.d. 6. The patient will be on his home medication as shown in the medication reconciliation section. The patient's diet will be low sodium diet and DVT prophylaxis will be through subcutaneous heparin 5000 units q. 12 hours and sequential compressive device. The patient will be on p.r.n. medications like Tylenol 650 mg q. 4 hours by mouth for fever, headache and IV Zofran 4 mg every 8 hours for nausea and vomiting. The patient will also be on guaifenesin 200 mg by mouth every 4 hours as needed for cough. JOB# [id number] OCN/NTS
[2018-05-17] MEDS ORDERED: SYNTHROID PO SCH (06:00)
[2018-05-17] MEDS: SOLU-Medrol IV SCH ×2 (06:33→14:23)
[2018-05-17 06:58] LABS: Creatine Kinase MB 1.5 ng/mL (0.0-4.0)
[2018-05-17] MEDS ORDERED: DUONEB *Not for PRN Use IH SCH (08:00)
--- NOTE | 2018-05-17 09:55 | Discharge Summary ---
Providers - Providers Date of Admission: 05/17/18 01:39 Attending physician: PEDRO OGDEN MD Primary care physician: [facility] Hospitalization Reason for admission: shortness breath Condition: Fair Hospital course: Patient is a 82-year-old male with a significant history of heart disease, lung cancer and COPD, who presents for evaluation of dyspnea. The patient reports worsening dyspnea from baseline for the past 2-3 days, severe, exacerbated with activity, improved with sitting up at rest, and associated with a nonproductive cough. Patient also admits to some mild bilateral lower extremity leg swelling. Patient was started on steroids and Abx patient has had multiple admissions in the hospital this year and all appears to be related to the COPD, PATIENT AND SPOUSE wants more comfort measures but no hospice. Demanding to be discharged that he is much better and has his own nurse at home that takes care of him and really did not want to bring him in only allowing him to stay because he was told he will leave today. He is wheelchair bound. Patient reported that his last PET scan per spouse is not as good as previous, patient told he will not survive lung surgery but had Radiation therapy patient does not want to be intubated. Patient is clinically improved and stable for discharge recommended to follow with pcp and pulmonary and oncologist. 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 GENERAL: The patient appeared well nourished and normally developed. Vital signs as documented. HEAD: No signs of head trauma. EYES: Pupils are equal. Extraocular motions intact. EARS: Hearing grossly intact. MOUTH: Oropharynx is normal. NECK: No adenopathy, no JVD. CHEST: Chest with diminished breath sounds bilaterally. No wheezes, rales, or rhonchi. CARDIAC: Regular rate and rhythm. S1 and S2, without murmurs, gallops, or rubs. VASCULAR: No Edema. Peripheral pulses normal and equal in all extremities. ABDOMEN: Soft, without detectable tenderness. No sign of distention. No rebound or guarding, and no masses palpated. Bowel Sounds normal. MUSCULOSKELETAL: Good range of motion of all major joints. Extremities without clubbing, cyanosis or edema. NEUROLOGIC EXAM: Alert and oriented x 3. No focal sensory or strength deficits. Speech normal. Follows commands. PSYCHIATRIC: Mood normal. SKIN: No rash or lesions. - Constitutional Vitals: Temp Pulse Resp BP Pulse Ox 98.0 F 100 H 22 140/65 93 05/17/18 07:58 05/17/18 09:02 05/17/18 09:02 05/17/18 08:00 05/17/18 08:50 Plan Activity: advance as tolerated, fall precautions Diet: low salt Special Instructions: record daily weights, record daily BP diary Follow up with: PRIMARY CAREMD [Primary Care Provider] - 3-5 Days SHEA WORTHINGTON MD [Staff Physician] - 7 Days BRIANA BOONE MD [Staff Physician] - 7 Days TAVON SPEARS MD [Staff Physician] - 7 Days Prescriptions: Lactobacillus Acidophilus [Probiotic Acidophilus] 1 each PO BID #30 tablet levoFLOXacin [Levaquin TAB] 500 mg PO DAILY #6 tablet Prednisone [predniSONE 5 mg (6-Day Pack, 21 Tabs)] 5 mg PO .TAPER #1 tab.ds.pk
[2018-05-17] MEDS ORDERED: PROVENTIL IH PRN (09:59)
[2018-05-17] MEDS ORDERED: DIFLUCAN PO SCH (10:00)
[2018-05-17] MEDS ORDERED: LEVAQUIN 750MG/150ML 750 MG/150 ML BAG IV SCH (10:00)
[2018-05-17] MEDS ORDERED: HEPARIN SUB-Q SCH (10:00)
[2018-05-17] MEDS ORDERED: LASIX PO SCH (10:00)
[2018-05-17] MEDS ORDERED: ROCALTROL PO SCH (10:00)
[2018-05-17] MEDS ORDERED: NON-FORMULARY (Fluticasone/Salmeterol [Advair Diskus 500-50 Mcg] 1 PUFF) IH SCH (10:00)
[2018-05-17] MEDS ORDERED: PROTONIX PO SCH (10:00)
[2018-05-17] MEDS ORDERED: COREG PO SCH (10:00)
[2018-05-17] MEDS ORDERED: HALFPRIN EC PO SCH (10:00)
[2018-05-17] MEDS ORDERED: FLOMAX PO SCH (10:00)
[2018-05-17] MEDS ORDERED: MIRALAX 3350 PO SCH (10:00)
[2018-05-17] MEDS ORDERED: Renal Caps PO SCH (10:00)
[2018-05-17] MEDS ORDERED: AFLURIA QUAD 2018-2019 SYRINGE IM ONE (12:00)
[2018-05-17] MEDS: DUONEB *Not for PRN Use IH SCH ×2 (12:43→14:38)
[2018-05-17 13:07] LABS: Creatine Kinase MB 1.9 ng/mL (0.0-4.0)
[2018-05-17 15:10] VITALS: BP 142/70
[2018-05-17] MEDS ORDERED: PULMICORT IH SCH (20:00)
[2018-05-17] MEDS ORDERED: BROVANA NEBU IH SCH (20:00)
== END 2018-05-17 15:10 | disposition home health service (06) | DRG 280 ==
LOC: ED 19:58 → 2B-ACE 05-17 01:39
PROVIDERS: ADMIT Internal Medicine; ATTEND Internal Medicine
DX: I21.A1 Myocardial infarction type 2 (principal); J18.9 Pneumonia, unspecified organism; J44.1 Chronic obstructive pulmonary disease with (acute) exacerbation; I42.0 Dilated cardiomyopathy; J44.0 Chronic obstructive pulmonary disease with (acute) lower respiratory infection; Z85.118 Personal history of other malignant neoplasm of bronchus and lung; I11.9 Hypertensive heart disease without heart failure; Z86.711 Personal history of pulmonary embolism; K21.9 Gastro-esophageal reflux disease without esophagitis; E03.9 Hypothyroidism, unspecified; N40.0 Benign prostatic hyperplasia without lower urinary tract symptoms; Z79.82 Long term (current) use of aspirin; Z79.899 Other long term (current) drug therapy; D63.8 Anemia in other chronic diseases classified elsewhere; J84.10 Pulmonary fibrosis, unspecified; Z99.3 Dependence on wheelchair
CPT/HCPCS: 36415; 71045; 80053; 80061; 82550; 82553; 83880; 84484; 85025; 87116; 90686; 93005; 93010; 94640; 94760; 96365; 96375; 99285; J0696; J1644; J1940; J1956; J2920; J2930; Q0177